=== PATIENT | female | born 1950 | race Caucasian/White ===

== ENCOUNTER → 2016-12-08 | Outpatient (CLI) | payer MEDICARE, BC | LOC: RAD 10:33 | PROVIDERS: ATTEND Internal Medicine Gastroenterology | DX: K74.69 Other cirrhosis of liver (principal); K76.0 Fatty (change of) liver, not elsewhere classified | CPT/HCPCS: 76700 ==

== ENCOUNTER 2017-02-07 14:09 | Inpatient (IN) | payer MEDICARE, BC ==
[2017-02-07] MEDS ORDERED: NORMAL SALINE 1000 ML 1,000 ML IV ONE (14:24)
[2017-02-07] MEDS ORDERED: PANTOPRAZOLE SODIUM 40 MG VIAL IV PRN (14:25)
[2017-02-07] MEDS ORDERED: NORMAL SALINE 500 ML with OCTREOTIDE ACETATE 500 MCG IV PRN ×2 (14:25)
[2017-02-07] MEDS ORDERED: OCTREOTIDE ACETATE INJ/PF 100 MCG/1 ML SDV IV ONE (14:25)
[2017-02-07] MEDS ORDERED: PANTOPRAZOLE SODIUM 40 MG VIAL IV ONE (14:25)
--- NOTE | 2017-02-07 14:34 | ER Document Report ---
ED GI Bleed / Rectal Pain - General Mode of Arrival: Medic Information source: Patient, Emergency Med Personnel TRAVEL OUTSIDE OF THE [place] IN LAST 30 DAYS: No - HPI Patient complains to provider of: Dark red bld from rectum Associated symptoms: Other - See above <KAREN JONES - Last Filed: 02/07/17 14:47> <CHEN GROSSMAN - Last Filed: 02/07/17 19:57> - General Chief Complaint: Rectal Bleeding Stated Complaint: rectal bleeding Time Seen by Provider: 02/07/17 14:09 Notes: Patient is a 66 year old female, with a past medical history including diabetes and hypertension, who presents to the emergency department via EMS complaining of rectal bleeding this morning. Patient states she woke up around 0330 and noticed dark red tar-like stool which is unusual for her. Patient denies bright red blood per rectum. Patient states that she started vomiting about 2 cups of dark red clotted blood after EMS arrived just prior to arrival. Patient states that she was also feeling diaphoretic and feverish at around 0330. Patient reports that she had this happen before a little over a year ago due to rupturing her esophageal varices and the bleeding stopped without intervention, she was treated by Dr. Aviles. Patient is not on any blood thinners, her last alcoholic drink was 20 years ago and she was never a heavy drinker before that. Patient states that she did have some abdominal pain en route but that subsided after she vomited. PCP: Dr. Bonilla GI: Dr. Aviles (KAREN JONES) - Related Data Allergies/Adverse Reactions: chocolate flavor Allergy (Verified 01/13/16 19:40) latex Allergy (Verified 01/13/16 19:40) moxifloxacin HCl [From Avelox] Allergy (Verified 01/13/16 19:40) Sulfa (Sulfonamide Antibiotics) Allergy (Verified 01/13/16 19:40) Home Medications: Current Home Medications Ferrous Sulfate [Feosol 325 mg Tablet] 325 mg PO BID 02/07/17 [History] Glimepiride [Amaryl] 2 mg PO QAM 02/07/17 [History] Losartan Potassium [Cozaar 50 mg Tablet] 50 mg PO DAILY 02/07/17 [History] Metformin HCl [Metformin HCl ER] 2,000 mg PO DAILY 02/07/17 [History] Nadolol [Corgard] 20 mg PO DAILY 02/07/17 [History] Simvastatin [Zocor 10 mg Tablet] 10 mg PO QHS 02/07/17 [History] Past Medical History - General Information source: Patient, Emergency Med Personnel - Social History Smoking Status: Former Smoker Frequency of alcohol use: Rare - last drink 20 years ago Drug Abuse: Marijuana - 20 years ago Family History: Reviewed & Not Pertinent - Past Medical History Cardiac Medical History: Reports: Hx Hypertension Endocrine Medical History: Reports: Hx Diabetes Mellitus Type 2 <KAREN JONES - Last Filed: 02/07/17 14:47> Review of Systems - Review of Systems Constitutional: See HPI, Diaphoresis, Fever EENT: No symptoms reported Cardiovascular: No symptoms reported Respiratory: No symptoms reported Gastrointestinal: See HPI, Abdominal pain, Vomiting, Blood in vomit, Black stools - dark blood. denies: Other - bright red blood per rectum Genitourinary: No symptoms reported Female Genitourinary: No symptoms reported Musculoskeletal: No symptoms reported Skin: No symptoms reported Hematologic/Lymphatic: No symptoms reported Neurological/Psychological: No symptoms reported -: Yes All other systems reviewed and negative <KAREN JONES - Last Filed: 02/07/17 14:47> Physical Exam <KAREN JONES - Last Filed: 02/07/17 14:47> <CHEN GROSSMAN - Last Filed: 02/07/17 19:57> - Vital signs Vitals: Temp Resp BP Pulse Ox 98.1 F 13 129/61 H 94 02/07/17 14:15 02/07/17 14:15 02/07/17 14:15 02/07/17 14:15 - Notes Notes: GENERAL: Alert, interacts well. No acute distress. HEAD: Normocephalic, atraumatic. EYES: Pupils equal, round, and reactive to light. Extraocular movements intact. ENT: Oral mucosa moist, tongue midline. NECK: Full range of motion. Supple. Trachea midline. LUNGS: Clear to auscultation bilaterally, no wheezes, rales, or rhonchi. No respiratory distress. HEART: 2 out of 6 systolic murmur at right upper sternal border. Regular rate and rhythm. No gallops, or rubs. ABDOMEN: Soft, non-tender. Non-distended. Bowel sounds present in all 4 quadrants. EXTREMITIES: Moves all 4 extremities spontaneously. No edema, radial and dorsalis pedis pulses 2/4 bilaterally. No cyanosis. RECTAL: Black tarry stool. No bright red blood. NEUROLOGICAL: Alert and oriented x3. Normal speech. PSYCH: Normal affect, normal mood. SKIN: Mildly diaphoretic. No pallor. (KAREN JONES) Course - Laboratory Result Diagrams: 02/07/17 14:18 02/07/17 14:18 - Consults Dr. Aviles Time consulted: 14:25 Dr. Almonte Time consulted: 14:30 <KAREN JONES - Last Filed: 02/07/17 14:47> - Laboratory Result Diagrams: 02/07/17 19:34 02/07/17 14:18 <CHEN GROSSMAN - Last Filed: 02/07/17 19:57> - Re-evaluation Re-evalutation: 02/07/17 19:57 CBC shows anemia with hemoglobin 10.3, platelets low at 132, coags normal, CMP shows elevated BUN of 52 consistent with GI bleed, low CO2 at 21, cardiac enzymes negative, occult blood is positive, patient is typed and screened, when she became hypotensive after talking to the hospitalist patient was then crossmatched for 2 units. Shortly after the patient's arrival I did speak with Dr. Aviles about the fact that GI bleed, he ordered octreotide and Protonix, agrees with admitting the patient to the hospitalist service and agrees to scope the patient later this evening. I discussed the patient with Dr. Almonte who accepted the patient to her service and will manage the patient further in the intensive care unit. (CHEN GROSSMAN) - Vital Signs Vital signs: Temp Pulse Resp BP Pulse Ox 98.3 F 97 22 H 158/66 H 98 02/07/17 18:34 02/07/17 18:34 02/07/17 18:34 02/07/17 18:34 02/07/17 18:34 - Laboratory Laboratory results interpreted by me: 02/07/17 02/07/17 02/07/17 14:18 14:18 14:18 RBC 3.34 L Hgb 10.3 L Hct 30.9 L RDW 14.2 H Plt Count 132 L Chloride 110 H Carbon Dioxide 21 L BUN 52 H Glucose 177 H POC Glucose ALT 58 H Total Protein 5.8 L Albumin 3.1 L Crossmatch See Detail 02/07/17 14:30 RBC Hgb Hct RDW Plt Count Chloride Carbon Dioxide BUN Glucose POC Glucose 160 H ALT Total Protein Albumin Crossmatch - Consults Dr. Aviles Reason for consultation: 02/07/17 14:25 Accepts patient, will scope later, orders Protonix and Sandostatin (KAREN JONES) Dr. Almonte Reason for consultation: 02/07/17 14:30 Will admit patient to ICU (KAREN JONES) Discharge <KAREN JONES - Last Filed: 02/07/17 14:47> - Discharge Admitting Provider: [facility] Admitted: ICU <CHEN GROSSMAN - Last Filed: 02/07/17 19:57> - Discharge Clinical Impression: Acute upper GI bleed Condition: Fair Disposition: ADMITTED INPATIENT Scribe Attestation: 02/07/17 19:57 I personally performed the services described in the documentation, reviewed and edited the documentation which was dictated to the scribe in my presence, and it accurately records my words and actions. (CHEN GROSSMAN) Scribe Documentation - Scribe Written by Olaf:: olaf Stevens, 02/07/17, [id number] acting as scribe for :: Radha <KAREN JONES - Last Filed: 02/07/17 14:47>
[2017-02-07 14:41] LABS: ABSOLUTE LYMPHOCYTES (AUTO) 1.7 10^3/uL (0.5-4.7); ABSOLUTE MONOCYTES (AUTO) 0.5 10^3/uL (0.1-1.4); ABSOLUTE NEUT (AUTO) 7.9 10^3/uL (1.7-8.2); BASOPHILS % (AUTO) 0.3 % (0-2); EOSINOPHILS % (AUTO) 0.3 % (0-6); HEMATOCRIT 30.9 % (36.0-47.0); HEMOGLOBIN 10.3 g/dL (12.0-15.5); LYMPHOCYTES % (AUTO) 16.6 % (13-45); MEAN CORPUSCULAR HEMOGLOBIN 30.7 pg (27.0-33.4); MEAN CORPUSCULAR HGB CONC 33.2 g/dL (32.0-36.0); MEAN CORPUSCULAR VOLUME 93 fl (80-97); MONOCYTES % (AUTO) 4.9 % (3-13); RED BLOOD COUNT 3.34 10^6/uL (3.72-5.28); RED CELL DISTRIBUTION WIDTH 14.2 % (11.5-14.0); SEGMENTED NEUTROPHILS % (AUTO) 77.9 % (42-78); WHITE BLOOD COUNT 10.2 10^3/uL (4.0-10.5)
[2017-02-07 14:56] LABS: ALANINE AMINOTRANSFERASE 58 U/L (9-52); ALBUMIN 3.1 g/dL (3.5-5.0); ALKALINE PHOSPHATASE 74 U/L (38-126); ANION GAP 10 (5-19); ASPARTATE AMINO TRANSFERASE 33 U/L (14-36); BILIRUBIN,DIRECT 0.2 mg/dL (0.0-0.4); BILIRUBIN,TOTAL 1.3 mg/dL (0.2-1.3); BLOOD UREA NITROGEN 52 mg/dL (7-20); CALCIUM 8.5 mg/dL (8.4-10.2); CARBON DIOXIDE 21 mmol/L (22-30); CHLORIDE 110 mmol/L (98-107); CREATININE RESULT 0.67 mg/dL (0.52-1.25); GLUCOSE 177 mg/dL (75-110); POTASSIUM 4.9 mmol/L (3.6-5.0); SODIUM 141.3 mmol/L (137-145); TOTAL PROTEIN 5.8 g/dL (6.3-8.2)
[2017-02-07 15:03] LABS: PROTHROMBIN TIME 14.2 SEC (11.4-15.4)
[2017-02-07] MEDS ORDERED: PROMETHAZINE HCL 25 MG SUPP.RECT PR PRN (15:19)
[2017-02-07] MEDS ORDERED: ONDANSETRON HCL INJ/PF 4 MG/2 ML SDV IV PRN (15:19)
[2017-02-07] MEDS ORDERED: OCTREOTIDE ACETATE INJ/PF 100 MCG/1 ML SDV ONE (15:23)
[2017-02-07] MEDS ORDERED: NORMAL SALINE 250 ML IV PRN ×2 (15:30)
[2017-02-07] MEDS ORDERED: GLUCAGON,HUMAN RECOMB 1 MG INJ IM PRN (15:31)
[2017-02-07] MEDS ORDERED: DEXTROSE 50%-WATER 25 GM/50 ML DISP.SYRIN IV PRN ×2 (15:31)
[2017-02-07] MEDS ORDERED: DEXTROSE 40% GEL 15 GM TUBE PO PRN ×2 (15:31)
[2017-02-07] MEDS: NORMAL SALINE 1000 ML 1,000 ML IV PRN ×2 (16:44→23:10)
[2017-02-07] MEDS ORDERED: NALOXONE HCL INJ/PF 0.4 MG/1 ML SDV ONE (17:14)
[2017-02-07] MEDS ORDERED: FENTANYL CITRATE INJ/PF 100 MCG/2 ML AMPUL ONE (17:15)
[2017-02-07] MEDS ORDERED: EPINEPHRINE INJ 1 MG/10 ML DISP.SYRIN ONE (17:15)
[2017-02-07] MEDS ORDERED: GLUCAGON,HUMAN RECOMB 1 MG INJ ONE (17:15)
[2017-02-07] MEDS ORDERED: FLUMAZENIL INJ 0.5 MG/5 ML VIAL IV ONE (17:15)
--- NOTE | 2017-02-07 17:23 | PDOC H&P ---
History of Present Illness Admission Date/PCP: 02/07/17 15:19 ROSLYN URIARTE PA-C History of Present Illness: SAURABH DURAND is a 66 year old female with a PMH of DM, HTN, HLD, anemia, cirrhosis, breast cancer with lumpectomy and radiation who presents to the emergency department with a one-day onset of melena and hematemesis. At 330 this morning feeling flushed and hot and diaphoretic and subsequently went to the bathroom and had a large dark stool. Patient subsequently had several other melanotic stools prompting her to activate EMS. Patient reports that she had several cups of emesis in the ambulance. Denies any changes in her medication or with excessive use of Motrin, Aleve, Goody's powders or aspirin. She reports she takes Aleve perhaps twice a week. Patient does report a questionable history in the early of hepatitis. Patient is referred to the hospital service for upper GI bleed. Past Medical History Cardiac Medical History: Reports: Hypertension Neurological Medical History: Denies: Seizures Endocrine Medical History: Reports: Diabetes Mellitus Type 2 Malignancy Medical History: Reports: Breast Cancer GI Medical History: Reports: Cirrhosis Infectious Medical History: Reports: Other - Questionable hepatitis Past Surgical History Past Surgical History: Reports: Other - lumpectomy Denies: Hysterectomy Social History Smoking Status: Former Smoker Frequency of Alcohol Use: None Hx Recreational Drug Use: No Drugs: None Hx Prescription Drug Abuse: No - Advance Directive Resuscitation Status: Full Code Surrogate healthcare decision maker:: ehsan, Family History Family History: CAD, DM Parental Family History Reviewed: Yes Children Family History Reviewed: Yes Sibling(s) Family History Reviewed.: Yes Medication/Allergy Home Medications: Ferrous Sulfate [Feosol 325 mg Tablet] 325 mg PO BID 02/07/17 Glimepiride [Amaryl] 2 mg PO QAM 02/07/17 Losartan Potassium [Cozaar 50 mg Tablet] 50 mg PO DAILY 02/07/17 Metformin HCl [Metformin HCl ER] 2,000 mg PO DAILY 02/07/17 Nadolol [Corgard] 20 mg PO DAILY 02/07/17 Simvastatin [Zocor 10 mg Tablet] 10 mg PO QHS 02/07/17 Allergies/Adverse Reactions: chocolate flavor Allergy (Verified 01/13/16 19:40) latex Allergy (Verified 01/13/16 19:40) moxifloxacin HCl [From Avelox] Allergy (Verified 01/13/16 19:40) Sulfa (Sulfonamide Antibiotics) Allergy (Verified 01/13/16 19:40) Review of Systems Constitutional: ABSENT: chills, fever(s), headache(s), weight gain, weight loss Eyes: ABSENT: visual disturbances Ears: ABSENT: hearing changes Cardiovascular: ABSENT: chest pain, dyspnea on exertion, edema, orthropnea, palpitations Respiratory: ABSENT: cough, hemoptysis Gastrointestinal: PRESENT: bloating, coffee ground emesis, hematemesis, melena, nausea, vomiting. ABSENT: abdominal pain, constipation, diarrhea, hematochezia Genitourinary: ABSENT: dysuria, hematuria Musculoskeletal: ABSENT: joint swelling Integumentary: ABSENT: rash, wounds Neurological: ABSENT: abnormal gait, abnormal speech, confusion, dizziness, focal weakness, syncope Psychiatric: ABSENT: anxiety, depression, homidical ideation, suicidal ideation Endocrine: ABSENT: cold intolerance, heat intolerance, polydipsia, polyuria Hematologic/Lymphatic: ABSENT: easy bleeding, easy bruising Physical Exam Vital Signs: Temp Pulse Resp BP Pulse Ox 97.5 F 90 22 H 129/67 H 96 02/07/17 16:35 02/07/17 16:35 02/07/17 16:35 02/07/17 16:35 02/07/17 16:35 Intake & Output 02/06/17 02/07/17 02/08/17 06:59 06:59 06:59 Intake Total 0 Balance 0 Weight 99.79 kg General appearance: PRESENT: mild distress, obese, well-developed, well- nourished, other - pale-appearing Head exam: PRESENT: atraumatic, normocephalic Eye exam: PRESENT: conjunctiva pink, EOMI, PERRLA. ABSENT: scleral icterus Ear exam: PRESENT: normal external ear exam Mouth exam: PRESENT: dry mucosa, tongue midline Neck exam: PRESENT: lymphadenopathy - Right anterior cervical. ABSENT: JVD, thyromegaly, tracheal deviation Respiratory exam: PRESENT: clear to auscultation [place], symmetrical, unlabored. ABSENT: crackles, rales, rhonchi, tachypnea, wheezes Cardiovascular exam: PRESENT: RRR, +S1, +S2, tachycardia. ABSENT: clicks, diastolic murmur, gallop, rubs, systolic murmur Pulses: PRESENT: normal dorsalis pedis pul Vascular exam: PRESENT: normal capillary refill GI/Abdominal exam: PRESENT: normal bowel sounds, soft. ABSENT: distended, guarding, mass, organolmegaly, rebound, tenderness Rectal exam: PRESENT: deferred, black stool, heme (+) stool Extremities exam: PRESENT: full ROM. ABSENT: calf tenderness, clubbing, pedal edema Neurological exam: PRESENT: alert, awake, oriented to person, oriented to place , oriented to time, oriented to situation, CN II-XII grossly intact. ABSENT: motor sensory deficit Psychiatric exam: PRESENT: appropriate affect, normal mood. ABSENT: homicidal ideation, suicidal ideation Skin exam: PRESENT: dry, intact, warm. ABSENT: cyanosis, rash Results Laboratory Results: 02/07/17 02/07/17 02/07/17 14:18 14:18 14:18 WBC 10.2 Hgb 10.3 L Hct 30.9 L Plt Count 132 L INR 1.03 Carbon Dioxide 21 L BUN 52 H Glucose 177 H POC Glucose AST 33 ALT 58 H Alkaline Phosphatase 74 Troponin I Total Protein 5.8 L Albumin 3.1 L Stool Occult Blood 02/07/17 02/07/17 02/07/17 14:18 14:20 14:30 WBC Hgb Hct Plt Count INR Carbon Dioxide BUN Glucose POC Glucose 160 H AST ALT Alkaline Phosphatase Troponin I < 0.012 Total Protein Albumin Stool Occult Blood POSITIVE Assessment & Plan - Diagnosis (1) Acute upper GI bleed Is this a current diagnosis for this admission?: YesPlan: Has been started on octreotide and Protonix drips. Patient has been typed and screened for an 2 units are currently on hold. We will continue to monitor patient's CBC every 4 hours. GI has been consulted emergently and patient has been seen previously by Dr. Aviles and plans for upper endoscopy today. She does have a history of prior variceal bleeding. Will go to the ICU. (2) Hypotension Qualifiers: Hypotension type: unspecified hypotension type Qualified Code(s): I95.9 - Hypotension, unspecified Is this a current diagnosis for this admission?: YesPlan: We will give patient additional liter of normal saline and run fluids aggressively after this. Consider vasopressin. (3) DM type 2 (diabetes mellitus, type 2) Qualifiers: Diabetes mellitus complication status: with unspecified complications Diabetes mellitus monorail operator insulin use: without monorail operator use Qualified Code(s): E11.8 - Type 2 diabetes mellitus with unspecified complications Is this a current diagnosis for this admission?: YesPlan: Patient is currently n.p.o. and will check her Accu-Chek every 6. (4) HTN (hypertension) Qualifiers: Hypertension type: essential hypertension Qualified Code(s): I10 - Essential (primary) hypertension Is this a current diagnosis for this admission?: YesPlan: At this time due to hypotension (5) HLD (hyperlipidemia) Qualifiers: Hyperlipidemia type: unspecified Qualified Code(s): E78.5 - Hyperlipidemia, unspecified Is this a current diagnosis for this admission?: Yes (6) Non-alcoholic cirrhosis Is this a current diagnosis for this admission?: Yes (7) History of breast cancer Is this a current diagnosis for this admission?: Yes (8) Obesity (BMI 30.0-34.9) Is this a current diagnosis for this admission?: Yes - Time Time Spent: 50 to 70 Minutes Critical Time spent with patient: 35 or more minutes Medications reviewed and adjusted accordingly: Yes - Inpatient Certification Based on my medical assessment, after consideration of the patient's comorbidities, presenting symptoms, or acuity I expect that the services needed warrant INPATIENT care.: Yes I certify that my determination is in accordance with my understanding of Medicare's requirements for reasonable and necessary INPATIENT services [42 CFR 412.3e].: Yes Medical Necessity: Need For IV Fluids, Need for Surgery Post Hospital Care: D/C Emergency Nurse Documentation
[2017-02-07 19:44] LABS: HEMATOCRIT 34.3 % (36.0-47.0); HEMOGLOBIN 11.3 g/dL (12.0-15.5); HGB HCT DIFFERENCE -0.4; MEAN CORPUSCULAR HEMOGLOBIN 29.8 pg (27.0-33.4); MEAN CORPUSCULAR VOLUME 90 fl (80-97); RED CELL DISTRIBUTION WIDTH 15.2 % (11.5-14.0); WHITE BLOOD COUNT 11.3 10^3/uL (4.0-10.5)
[2017-02-07] MEDS: MIDAZOLAM 2 MG/2 ML INJ ONE ×2 (20:18→20:30)
[2017-02-07] MEDS: HYDROMORPHONE HCL INJ/PF 2 MG/ML AMPULE IV PRN (21:20)
--- NOTE | 2017-02-07 21:54 | OPERATIVE REPORT E ---
Operative Report NAME: SAURABH DURAND : 1950 AGE: 66Y DATE OF SURGERY: 02/07/2017 ROOM: 605 PREOPERATIVE DIAGNOSIS: Acute GI bleed. POSTOPERATIVE DIAGNOSIS: Esophageal varices. OPERATION: EGD with varices rubber banding. SURGEON: KARTHIKEYAN ALARCON M.D. MEDICATIONS: Versed 3 mg, fentanyl 100 mcg IV push. TISSUE REMOVED OR ALTERED: None. PROCEDURE: After informed consent obtained from patient, conscious sedation was achieved. The upper endoscope was then inserted into the esophagus and down into the stomach. There was some altered blood noted in the stomach but no active bleeding was seen. The residual blood was lavaged and suctioned out of the stomach. Detailed examination of the duodenum and the stomach did not shows any pathology. There were no gastric varices. The patient had a moderate size, long esophageal varix involving the distal one part of the esophagus. There were two smaller short varices noted close to the GE junction. I did not see any evidence for routine bleeding on the varix but with the normal stomach and duodenum and altered blood in the stomach, the varices are the likely etiology. The endoscope was then pulled out of the patient and ARNULFO rubber band kit was then loaded. Three rubber bands were applied on the largest varix and one band on one of the small varix. No active bleeding was noted at the end of the procedure. She tolerated the procedure well. PLAN: She will undergo *------* variceal rubber banding. Continue Sandostatin and nadolol. She will be restarted as soon as possible. DICTATING PHYSICIAN: KARTHIEKYAN ALARCON M.D. [id number] Y#: [id number] ID: [id number] JOB#: [id number] ACCT: [id number] cc:KARTHIKEYAN ALARCON M.D. >
[2017-02-07] MEDS: SUCRALFATE SUSP 1 GM/10 ML UDCUP PO SCH (23:09)
[2017-02-07] MEDS: NORMAL SALINE 500 ML with OCTREOTIDE ACETATE 500 MCG IV PRN ×2 (23:10)
[2017-02-07] MEDS: NORMAL SALINE 100 ML with PANTOPRAZOLE SODIUM 80 MG IV PRN ×2 (23:10)
--- NOTE | 2017-02-07 23:18 | CONSULTATION REPORT E ---
Consultation Report NAME: SAURABH DURAND : 1950 AGE: 66Y DATE: 02/07/2017 ROOM: 605 A TO: KARTHIKEYAN ALARCON M.D. FROM: ROGER ANGELA M.D. Requesting Physician HISTORY OF THE PRESENT ILLNESS: This is a 65-year-old patient admitted through the emergency room with GI bleed. She woke up this morning feeling sick and subsequently had black stools. She has had about 2 melanotic stools so far. She also vomited 3 times in total, each of which had fresh blood in it. She denies abdominal pain. On admission hemoglobin was 10.3 and she has since received 4 units of blood and most recent hemoglobin was 11.3. Her platelet count on admission was 132. INR was normal at 1.03. The patient had a similar episode of GI bleed about a year ago. At that time she only had black stools and had some right lower quadrant pain. I performed an EGD that showed a single moderate sized distal esophageal varices, diffuse gastritis, and antral erosions. A colonoscopy at that time was unremarkable except for polyps in the descending and ascending colon and sigmoid diverticulosis. She had been doing well since that episode of GI bleed. She had a CT scan of the abdomen in 12/2015 that showed a normal liver and no significant findings except for thickening of some parts of the jejunum. She had an ultrasound of the abdomen in November of this year that showed fatty liver. The liver did have a nodular surface with coarse echotexture consistent with cirrhosis. PAST MEDICAL HISTORY: Cirrhosis, esophageal varices, diverticulosis, colon polyps, breast cancer, diabetes, hypertension, hypercholesterolemia. PAST SURGICAL HISTORY: EGD and colonoscopy in 12/2015. ALLERGIES: LATEX, SULFA, CHOCOLATE, AND MOXIFLOXACIN. MEDICATIONS AT HOME: 1. Nadolol 20 mg daily. 2. Ferrous sulfate. 3. Glimepiride. 4. Cozaar. 5. Zocor. 6. Metformin. REVIEW OF SYSTEMS: Other than the above is noncontributory. PHYSICAL EXAMINATION: GENERAL: Shows an obese lady in no distress. VITAL SIGNS: She has a heart rate of 97, blood pressure 158/66. HEENT: There is pallor but no jaundice. Oropharynx is normal. NECK: No bruit, no JVD. CHEST: No deformity. LUNGS: Clear. HEART: S1 and S2 normal without murmurs. ABDOMEN: Soft and nontender. Liver and spleen not palpable. Bowel sounds active. NEUROLOGIC: Grossly nonfocal. OTHER LABORATORY DATA: Showed a normal LFT, except for an ALT of 58, albumin of 3.1, BUN of 52 with creatinine of 0.6. Platelet of 132. ASSESSMENT AND PLAN: Acute gastrointestinal bleed. The patient has had episodes of melena and bright red blood in her vomiting. I suspect she may have bled from her varices but peptic ulcers are also possible. She takes Aleve about 4 times a week. She will undergo an urgent EGD in ICU. She was started on IV Protonix and octreotide in the emergency room. We will shall follow her H and H every 6-8 hours for now. DICTATING PHYSICIAN: KARTHIKEYAN ALARCON M.D. [id number] Y#: [id number] 2019 ID: [id number] JOB#: [id number] ACCT: [id number] cc:KARTHIKEYAN ALARCON M.D. >
[2017-02-07 23:40] LABS: HEMATOCRIT 34.9 % (36.0-47.0); HEMOGLOBIN 11.6 g/dL (12.0-15.5); HGB HCT DIFFERENCE -0.1; MEAN CORPUSCULAR HGB CONC 33.2 g/dL (32.0-36.0); MEAN CORPUSCULAR VOLUME 91 fl (80-97); RED BLOOD COUNT 3.86 10^6/uL (3.72-5.28); RED CELL DISTRIBUTION WIDTH 15.3 % (11.5-14.0); WHITE BLOOD COUNT 14.9 10^3/uL (4.0-10.5)
[2017-02-08 04:03] LABS: HEMOGLOBIN 10.6 g/dL (12.0-15.5); HGB HCT DIFFERENCE -0.2; MEAN CORPUSCULAR HEMOGLOBIN 29.8 pg (27.0-33.4); MEAN CORPUSCULAR HGB CONC 33.2 g/dL (32.0-36.0); MEAN CORPUSCULAR VOLUME 90 fl (80-97); RED BLOOD COUNT 3.56 10^6/uL (3.72-5.28); RED CELL DISTRIBUTION WIDTH 15.6 % (11.5-14.0); WHITE BLOOD COUNT 12.2 10^3/uL (4.0-10.5)
[2017-02-08] MEDS: NORMAL SALINE 1000 ML 1,000 ML IV PRN (06:04)
[2017-02-08] MEDS: SUCRALFATE SUSP 1 GM/10 ML UDCUP PO SCH ×3 (06:04→17:35)
[2017-02-08] MEDS: HYDROMORPHONE HCL INJ/PF 2 MG/ML AMPULE IV PRN (06:35)
[2017-02-08 07:47] LABS: ABSOLUTE EOSINOPHILS # (AUTO) 0.2 10^3/uL (0.0-0.6); ABSOLUTE LYMPHOCYTES (AUTO) 2.1 10^3/uL (0.5-4.7); ABSOLUTE NEUT (AUTO) 7.9 10^3/uL (1.7-8.2); BASOPHILS % (AUTO) 0.3 % (0-2); EOSINOPHILS % (AUTO) 1.4 % (0-6); HEMATOCRIT 31.8 % (36.0-47.0); HEMOGLOBIN 10.5 g/dL (12.0-15.5); HGB HCT DIFFERENCE -0.3; LYMPHOCYTES % (AUTO) 18.8 % (13-45); MEAN CORPUSCULAR HEMOGLOBIN 29.8 pg (27.0-33.4); MEAN CORPUSCULAR HGB CONC 32.8 g/dL (32.0-36.0); MEAN CORPUSCULAR VOLUME 91 fl (80-97); MONOCYTES % (AUTO) 9.1 % (3-13); RED BLOOD COUNT 3.51 10^6/uL (3.72-5.28); RED CELL DISTRIBUTION WIDTH 15.8 % (11.5-14.0); SEGMENTED NEUTROPHILS % (AUTO) 70.4 % (42-78); WHITE BLOOD COUNT 11.2 10^3/uL (4.0-10.5)
[2017-02-08 08:04] LABS: ALANINE AMINOTRANSFERASE 58 U/L (9-52); ALBUMIN 2.7 g/dL (3.5-5.0); ALKALINE PHOSPHATASE 73 U/L (38-126); ANION GAP 7 (5-19); ASPARTATE AMINO TRANSFERASE 32 U/L (14-36); BILIRUBIN,DIRECT 0.2 mg/dL (0.0-0.4); BILIRUBIN,TOTAL 0.7 mg/dL (0.2-1.3); BLOOD UREA NITROGEN 36 mg/dL (7-20); CALCIUM 7.5 mg/dL (8.4-10.2); CARBON DIOXIDE 22 mmol/L (22-30); CHLORIDE 116 mmol/L (98-107); CREATININE RESULT 0.63 mg/dL (0.52-1.25); GLUCOSE 141 mg/dL (75-110); MAGNESIUM 1.6 mg/dL (1.6-2.3); POTASSIUM 4.1 mmol/L (3.6-5.0); TOTAL PROTEIN 5.3 g/dL (6.3-8.2)
[2017-02-08] MEDS: NORMAL SALINE 500 ML with OCTREOTIDE ACETATE 500 MCG IV PRN ×4 (09:03→20:02)
[2017-02-08] MEDS ORDERED: HYDROMORPHONE HCL INJ/PF 2 MG/ML AMPULE IV PRN (09:21)
[2017-02-08] MEDS ORDERED: FUROSEMIDE INJ/PF 20 MG/2 ML SDV IV ONE (09:45)
[2017-02-08] MEDS: NORMAL SALINE 100 ML with PANTOPRAZOLE SODIUM 80 MG IV PRN ×2 (10:04)
[2017-02-08] MEDS: MAGNESIUM SULFATE/D5W 100 ML IV SCH ×2 (10:04→11:21)
[2017-02-08] MEDS: LIDOCAINE 2% VISCOUS SOLN 20 ML UDCUP PO PRN ×3 (10:56→20:14)
[2017-02-08] MEDS: INSULIN LISPRO 100 UNIT/ML 3 ML VIAL SUBCUT PRN (11:45)
[2017-02-08 13:08] LABS: HEMATOCRIT 32.3 % (36.0-47.0); HEMOGLOBIN 10.7 g/dL (12.0-15.5); HGB HCT DIFFERENCE -0.2; MEAN CORPUSCULAR HEMOGLOBIN 30.3 pg (27.0-33.4); MEAN CORPUSCULAR HGB CONC 33.1 g/dL (32.0-36.0); MEAN CORPUSCULAR VOLUME 91 fl (80-97); RED BLOOD COUNT 3.54 10^6/uL (3.72-5.28); RED CELL DISTRIBUTION WIDTH 15.9 % (11.5-14.0); WHITE BLOOD COUNT 10.2 10^3/uL (4.0-10.5)
--- NOTE | 2017-02-08 18:11 | PDOC PROGRESS REPORT ---
Subjective Progress Note for:: 02/08/17 Subjective:: Underwent variceal banding last night. She was having some pain afterwards and was given Dilaudid and is still sleepy this morning. Patient denies chest pain, fever, chills, shortness of breath, nausea, vomiting , hematemesis, hematochezia, melena. Physical Exam Vital Signs: Temp Pulse Resp BP Pulse Ox 99.5 F 88 19 130/71 H 97 02/08/17 18:00 02/08/17 16:00 02/08/17 18:00 02/08/17 17:02 02/08/17 18:00 Intake & Output 02/07/17 02/08/17 02/09/17 06:59 06:59 06:59 Intake Total 3319 1674 Output Total 1625 1325 Balance 1694 349 Weight 102.8 kg Exam: GENERAL: No acute distress HEENT: Conjunctiva clear, nonicteric, moist mucous membranes, no JVD, midline trachea RESPIRATORY: CTAB CARDIAC: RRR, no rub or gallop ABDOMEN: Soft, nondistended, nontender, positive bowel sounds, no rebound, no guarding EXTREMETIES: No edema, cyanosis, clubbing NEUROLOGIC: Alert, oriented to person, CN's grossly intact SKIN: No rash, wounds PSYCH: Normal mood, normal affect Results Laboratory Results: 02/08/17 13:01 02/08/17 07:37 02/07/17 02/07/17 02/08/17 19:34 23:34 03:34 WBC 11.3 H 14.9 H 12.2 H RBC 3.80 3.86 3.56 L Hgb 11.3 L 11.6 L 10.6 L Hct 34.3 L 34.9 L 32.0 L MCV 90 91 90 MCH 29.8 30.0 29.8 MCHC 33.0 33.2 33.2 RDW 15.2 H 15.3 H 15.6 H Plt Count 112 L 106 L 99 L Seg Neutrophils % Lymphocytes % Monocytes % Eosinophils % Basophils % Absolute Neutrophils Absolute Lymphocytes Absolute Monocytes Absolute Eosinophils Absolute Basophils Sodium Potassium Chloride Carbon Dioxide Anion Gap BUN Creatinine Est GFR ( Amer) Est GFR (Non-Af Amer) Glucose Calcium Magnesium Total Bilirubin AST ALT Alkaline Phosphatase Total Protein Albumin 02/08/17 02/08/17 02/08/17 07:37 07:37 11:30 WBC 11.2 H Cancelled RBC 3.51 L Cancelled Hgb 10.5 L Cancelled Hct 31.8 L Cancelled MCV 91 Cancelled MCH 29.8 Cancelled MCHC 32.8 Cancelled RDW 15.8 H Cancelled Plt Count 112 L Cancelled Seg Neutrophils % 70.4 Lymphocytes % 18.8 Monocytes % 9.1 Eosinophils % 1.4 Basophils % 0.3 Absolute Neutrophils 7.9 Absolute Lymphocytes 2.1 Absolute Monocytes 1.0 Absolute Eosinophils 0.2 Absolute Basophils 0.0 Sodium 145.0 Potassium 4.1 Chloride 116 H Carbon Dioxide 22 Anion Gap 7 BUN 36 H Creatinine 0.63 Est GFR ( Amer) > 60 Est GFR (Non-Af Amer) > 60 Glucose 141 H Calcium 7.5 L Magnesium 1.6 Total Bilirubin 0.7 AST 32 ALT 58 H Alkaline Phosphatase 73 Total Protein 5.3 L Albumin 2.7 L 02/08/17 13:01 WBC 10.2 RBC 3.54 L Hgb 10.7 L Hct 32.3 L MCV 91 MCH 30.3 MCHC 33.1 RDW 15.9 H Plt Count 116 L Seg Neutrophils % Lymphocytes % Monocytes % Eosinophils % Basophils % Absolute Neutrophils Absolute Lymphocytes Absolute Monocytes Absolute Eosinophils Absolute Basophils Sodium Potassium Chloride Carbon Dioxide Anion Gap BUN Creatinine Est GFR ( Amer) Est GFR (Non-Af Amer) Glucose Calcium Magnesium Total Bilirubin AST ALT Alkaline Phosphatase Total Protein Albumin 02/07/17 02/08/17 21:18 03:34 Troponin I < 0.012 < 0.012 Assessment & Plan - Diagnosis (1) Acute upper GI bleed Is this a current diagnosis for this admission?: YesPlan: Continue octreotide and Protonix drips. Patient has been typed and screened for an 2 units are currently on hold. Start patient on clear liquid diet. Transition to oral PPI. Continue octreotide. EGD done 02/07/17 reveals variceal bleed which has been banded. (2) Hypotension Qualifiers: Hypotension type: unspecified hypotension type Qualified Code(s): I95.9 - Hypotension, unspecified Is this a current diagnosis for this admission?: Yes (3) DM type 2 (diabetes mellitus, type 2) Qualifiers: Diabetes mellitus complication status: with unspecified complications Diabetes mellitus laborer marine terminal insulin use: without laborer marine terminal use Qualified Code(s): E11.8 - Type 2 diabetes mellitus with unspecified complications; Z79.4 - director long term care (current) use of insulin Is this a current diagnosis for this admission?: YesPlan: Accu-Cheks and sliding scale until patient is taking normal oral input. (4) HTN (hypertension) Qualifiers: Hypertension type: essential hypertension Qualified Code(s): I10 - Essential (primary) hypertension Is this a current diagnosis for this admission?: Yes (5) HLD (hyperlipidemia) Qualifiers: Hyperlipidemia type: unspecified Qualified Code(s): E78.5 - Hyperlipidemia, unspecified Is this a current diagnosis for this admission?: Yes (6) Non-alcoholic cirrhosis Is this a current diagnosis for this admission?: Yes (7) History of breast cancer Is this a current diagnosis for this admission?: Yes (8) Obesity (BMI 30.0-34.9) Is this a current diagnosis for this admission?: Yes - Time Time Spent with patient: 25-34 minutes Medications reviewed and adjusted accordingly: Yes Anticipated discharge: Home Within: within 48 hours
--- NOTE | 2017-02-08 19:10 | PDOC PROGRESS REPORT ---
Subjective Progress Note for:: 02/08/17 Subjective:: Patient was seen yesterday with acute variceal bleeding. She had an EGD with placement of 4 rubber bands. She has been doing reasonably well since the endoscopy. She continues to have some retrosternal discomfort but this is better than earlier today. Hemoglobin remained stable. Physical Exam Vital Signs: Temp Pulse Resp BP Pulse Ox 99.5 F 88 19 130/71 H 97 02/08/17 18:00 02/08/17 16:00 02/08/17 18:00 02/08/17 17:02 02/08/17 18:00 Intake & Output 02/07/17 02/08/17 02/09/17 06:59 06:59 06:59 Intake Total 3319 1674 Output Total 1625 1700 Balance 1694 -26 Weight 102.8 kg Exam: General: Patient is alert and looks well. HEENT: There is pallor but no jaundice. PERRLA. Oropharynx normal Respiratory: No chest deformity. No respiratory distress. Chest wall palpitation was unremarkable. Breath sounds were normal Cardiovascular: Heart sounds 1 and 2 normal with no murmurs. Abdominal: Not distended. Soft and nontender. Liver and spleen not palpable. No ascites demonstrated. Bowel sounds active. Rectal examination was deferred. Extremities: No edema Neurological: Alert and oriented x4. Grossly nonfocal. Normal speech Skin: No significant rash Psychological: Normal affect Results Laboratory Results: 02/08/17 13:01 02/08/17 07:37 02/07/17 02/07/17 02/08/17 19:34 23:34 03:34 WBC 11.3 H 14.9 H 12.2 H RBC 3.80 3.86 3.56 L Hgb 11.3 L 11.6 L 10.6 L Hct 34.3 L 34.9 L 32.0 L MCV 90 91 90 MCH 29.8 30.0 29.8 MCHC 33.0 33.2 33.2 RDW 15.2 H 15.3 H 15.6 H Plt Count 112 L 106 L 99 L Seg Neutrophils % Lymphocytes % Monocytes % Eosinophils % Basophils % Absolute Neutrophils Absolute Lymphocytes Absolute Monocytes Absolute Eosinophils Absolute Basophils Sodium Potassium Chloride Carbon Dioxide Anion Gap BUN Creatinine Est GFR ( Amer) Est GFR (Non-Af Amer) Glucose Calcium Magnesium Total Bilirubin AST ALT Alkaline Phosphatase Total Protein Albumin 02/08/17 02/08/17 02/08/17 07:37 07:37 11:30 WBC 11.2 H Cancelled RBC 3.51 L Cancelled Hgb 10.5 L Cancelled Hct 31.8 L Cancelled MCV 91 Cancelled MCH 29.8 Cancelled MCHC 32.8 Cancelled RDW 15.8 H Cancelled Plt Count 112 L Cancelled Seg Neutrophils % 70.4 Lymphocytes % 18.8 Monocytes % 9.1 Eosinophils % 1.4 Basophils % 0.3 Absolute Neutrophils 7.9 Absolute Lymphocytes 2.1 Absolute Monocytes 1.0 Absolute Eosinophils 0.2 Absolute Basophils 0.0 Sodium 145.0 Potassium 4.1 Chloride 116 H Carbon Dioxide 22 Anion Gap 7 BUN 36 H Creatinine 0.63 Est GFR ( Amer) > 60 Est GFR (Non-Af Amer) > 60 Glucose 141 H Calcium 7.5 L Magnesium 1.6 Total Bilirubin 0.7 AST 32 ALT 58 H Alkaline Phosphatase 73 Total Protein 5.3 L Albumin 2.7 L 02/08/17 13:01 WBC 10.2 RBC 3.54 L Hgb 10.7 L Hct 32.3 L MCV 91 MCH 30.3 MCHC 33.1 RDW 15.9 H Plt Count 116 L Seg Neutrophils % Lymphocytes % Monocytes % Eosinophils % Basophils % Absolute Neutrophils Absolute Lymphocytes Absolute Monocytes Absolute Eosinophils Absolute Basophils Sodium Potassium Chloride Carbon Dioxide Anion Gap BUN Creatinine Est GFR ( Amer) Est GFR (Non-Af Amer) Glucose Calcium Magnesium Total Bilirubin AST ALT Alkaline Phosphatase Total Protein Albumin 02/07/17 02/08/17 21:18 03:34 Troponin I < 0.012 < 0.012 Assessment & Plan - Diagnosis (1) Esophageal varices with bleeding Is this a current diagnosis for this admission?: YesPlan: Her bleeding appeared to have stopped. I will start tapering her octreotide tomorrow morning and be done at the end of the day. She should be able to go home in 2 days if there is no recurrence of bleeding. Her nadolol was resumed at 40 mg daily. She will continue with Carafate and lidocaine as needed. The plan is to repeat EGD with banding in about 4 weeks. (2) Acute upper GI bleed Is this a current diagnosis for this admission?: Yes (3) Non-alcoholic cirrhosis Is this a current diagnosis for this admission?: Yes
[2017-02-09] MEDS: SUCRALFATE SUSP 1 GM/10 ML UDCUP PO SCH ×4 (00:07→18:42)
[2017-02-09] MEDS: LIDOCAINE 2% VISCOUS SOLN 20 ML UDCUP PO PRN ×4 (00:07→20:56)
[2017-02-09 04:15] LABS: ABSOLUTE EOSINOPHILS # (AUTO) 0.1 10^3/uL (0.0-0.6); ABSOLUTE LYMPHOCYTES (AUTO) 2.1 10^3/uL (0.5-4.7); ABSOLUTE MONOCYTES (AUTO) 0.7 10^3/uL (0.1-1.4); ABSOLUTE NEUT (AUTO) 5.6 10^3/uL (1.7-8.2); BASOPHILS % (AUTO) 0.4 % (0-2); EOSINOPHILS % (AUTO) 1.2 % (0-6); HEMOGLOBIN 10.6 g/dL (12.0-15.5); HGB HCT DIFFERENCE 0.8; LYMPHOCYTES % (AUTO) 24.2 % (13-45); MEAN CORPUSCULAR HEMOGLOBIN 30.3 pg (27.0-33.4); MEAN CORPUSCULAR HGB CONC 34.2 g/dL (32.0-36.0); MEAN CORPUSCULAR VOLUME 89 fl (80-97); MONOCYTES % (AUTO) 8.6 % (3-13); RED CELL DISTRIBUTION WIDTH 15.4 % (11.5-14.0); SEGMENTED NEUTROPHILS % (AUTO) 65.6 % (42-78); WHITE BLOOD COUNT 8.5 10^3/uL (4.0-10.5)
[2017-02-09 04:21] LABS: ALANINE AMINOTRANSFERASE 63 U/L (9-52); ALKALINE PHOSPHATASE 79 U/L (38-126); ANION GAP 9 (5-19); ASPARTATE AMINO TRANSFERASE 39 U/L (14-36); BILIRUBIN,DIRECT 0.3 mg/dL (0.0-0.4); BILIRUBIN,TOTAL 0.7 mg/dL (0.2-1.3); BLOOD UREA NITROGEN 17 mg/dL (7-20); CALCIUM 7.9 mg/dL (8.4-10.2); CARBON DIOXIDE 25 mmol/L (22-30); CHLORIDE 109 mmol/L (98-107); CREATININE RESULT 0.65 mg/dL (0.52-1.25); GLUCOSE 140 mg/dL (75-110); MAGNESIUM 1.8 mg/dL (1.6-2.3); POTASSIUM 3.9 mmol/L (3.6-5.0); SODIUM 142.8 mmol/L (137-145); TOTAL PROTEIN 5.7 g/dL (6.3-8.2)
[2017-02-09] MEDS: NORMAL SALINE 500 ML with OCTREOTIDE ACETATE 500 MCG IV PRN ×2 (05:11)
[2017-02-09] MEDS: NADOLOL 40 MG TABLET PO SCH (10:10)
[2017-02-09] MEDS: LANSOPRAZOLE 30 MG TAB.RAP.DR PO SCH ×2 (10:11→18:42)
[2017-02-09] MEDS: INSULIN LISPRO 100 UNIT/ML 3 ML VIAL SUBCUT PRN (12:34)
--- NOTE | 2017-02-09 19:01 | PDOC PROGRESS REPORT ---
Subjective Progress Note for:: 02/09/17 Subjective:: Underwent variceal banding on 02/07/17. Reports some ongoing discomfort with swallowing. She denies any further bowel movements or episodes of hematemesis. Patient denies chest pain, fever, chills, shortness of breath, nausea, vomiting , hematemesis, hematochezia, melena. Physical Exam Vital Signs: Temp Pulse Resp BP Pulse Ox 97.8 F 73 18 147/61 H 97 02/09/17 07:42 02/09/17 14:00 02/09/17 07:42 02/09/17 07:42 02/09/17 07:42 Intake & Output 02/08/17 02/09/17 02/10/17 06:59 06:59 06:59 Intake Total 3319 2231 Output Total 2430 7925 Balance 1694 -1194 Weight 102.8 kg 102 kg Exam: GENERAL: No acute distress HEENT: Conjunctiva clear, nonicteric, moist mucous membranes, no JVD, midline trachea RESPIRATORY: CTAB CARDIAC: RRR, no rub or gallop ABDOMEN: Soft, nondistended, nontender, positive bowel sounds, no rebound, no guarding EXTREMETIES: No edema, cyanosis, clubbing NEUROLOGIC: Alert, oriented to person, CN's grossly intact SKIN: No rash, wounds PSYCH: Normal mood, normal affect Results Laboratory Results: 02/09/17 03:53 02/09/17 03:53 02/09/17 02/09/17 03:53 03:53 WBC 8.5 RBC 3.50 L Hgb 10.6 L Hct 31.0 L MCV 89 MCH 30.3 MCHC 34.2 RDW 15.4 H Plt Count 98 L Seg Neutrophils % 65.6 Lymphocytes % 24.2 Monocytes % 8.6 Eosinophils % 1.2 Basophils % 0.4 Absolute Neutrophils 5.6 Absolute Lymphocytes 2.1 Absolute Monocytes 0.7 Absolute Eosinophils 0.1 Absolute Basophils 0.0 Sodium 142.8 Potassium 3.9 Chloride 109 H Carbon Dioxide 25 Anion Gap 9 BUN 17 Creatinine 0.65 Est GFR ( Amer) > 60 Est GFR (Non-Af Amer) > 60 Glucose 140 H Calcium 7.9 L Magnesium 1.8 Total Bilirubin 0.7 AST 39 H ALT 63 H Alkaline Phosphatase 79 Total Protein 5.7 L Albumin 3.0 L 02/07/17 02/08/17 21:18 03:34 Troponin I < 0.012 < 0.012 Assessment & Plan - Diagnosis (1) Acute upper GI bleed Is this a current diagnosis for this admission?: YesPlan: Continue octreotide taper. Patient has been typed and screened for an 2 units are currently on hold. EGD done 02/07/17 reveals variceal bleed which has been banded. On Prevacid (2) Hypotension Qualifiers: Hypotension type: unspecified hypotension type Qualified Code(s): I95.9 - Hypotension, unspecified Is this a current diagnosis for this admission?: YesPlan: We will give patient additional liter of normal saline and run fluids aggressively after this. Consider vasopressin. (3) DM type 2 (diabetes mellitus, type 2) Qualifiers: Diabetes mellitus complication status: with unspecified complications Diabetes mellitus shelter insulin use: without shelter use Qualified Code(s): E11.8 - Type 2 diabetes mellitus with unspecified complications; Z79.4 - terminal gauger (current) use of insulin Is this a current diagnosis for this admission?: YesPlan: Accu-Cheks and sliding scale until patient is taking normal oral input. (4) HTN (hypertension) Qualifiers: Hypertension type: essential hypertension Qualified Code(s): I10 - Essential (primary) hypertension Is this a current diagnosis for this admission?: YesPlan: At this time due to hypotension (5) HLD (hyperlipidemia) Qualifiers: Hyperlipidemia type: unspecified Qualified Code(s): E78.5 - Hyperlipidemia, unspecified Is this a current diagnosis for this admission?: Yes (6) Non-alcoholic cirrhosis Is this a current diagnosis for this admission?: YesPlan: Patient will need to follow-up with her GI physician and has been advised to lose weight. Patient has also been advised to watch her cholesterol and diabetes. (7) History of breast cancer Is this a current diagnosis for this admission?: Yes (8) Obesity (BMI 30.0-34.9) Is this a current diagnosis for this admission?: Yes
[2017-02-10] MEDS: SUCRALFATE SUSP 1 GM/10 ML UDCUP PO SCH ×3 (00:09→13:00)
[2017-02-10 05:40] LABS: ALANINE AMINOTRANSFERASE 59 U/L (9-52); ALBUMIN 2.8 g/dL (3.5-5.0); ALKALINE PHOSPHATASE 70 U/L (38-126); ANION GAP 6 (5-19); ASPARTATE AMINO TRANSFERASE 39 U/L (14-36); BILIRUBIN,DIRECT 0.2 mg/dL (0.0-0.4); BILIRUBIN,TOTAL 0.6 mg/dL (0.2-1.3); BLOOD UREA NITROGEN 12 mg/dL (7-20); CALCIUM 7.9 mg/dL (8.4-10.2); CARBON DIOXIDE 28 mmol/L (22-30); CHLORIDE 108 mmol/L (98-107); CREATININE RESULT 0.68 mg/dL (0.52-1.25); GLUCOSE 114 mg/dL (75-110); POTASSIUM 3.7 mmol/L (3.6-5.0); SODIUM 141.7 mmol/L (137-145); TOTAL PROTEIN 5.3 g/dL (6.3-8.2)
[2017-02-10 06:09] LABS: ABSOLUTE EOSINOPHILS # (AUTO) 0.1 10^3/uL (0.0-0.6); ABSOLUTE MONOCYTES (AUTO) 0.4 10^3/uL (0.1-1.4); ABSOLUTE NEUT (AUTO) 2.9 10^3/uL (1.7-8.2); BASOPHILS % (AUTO) 0.4 % (0-2); EOSINOPHILS % (AUTO) 1.4 % (0-6); HEMATOCRIT 28.2 % (36.0-47.0); HEMOGLOBIN 9.4 g/dL (12.0-15.5); LYMPHOCYTES % (AUTO) 37.1 % (13-45); MEAN CORPUSCULAR HGB CONC 33.2 g/dL (32.0-36.0); MEAN CORPUSCULAR VOLUME 90 fl (80-97); RED BLOOD COUNT 3.13 10^6/uL (3.72-5.28); SEGMENTED NEUTROPHILS % (AUTO) 53.1 % (42-78); WHITE BLOOD COUNT 5.4 10^3/uL (4.0-10.5)
[2017-02-10] MEDS: LANSOPRAZOLE 30 MG TAB.RAP.DR PO SCH (08:05)
[2017-02-10] MEDS: LIDOCAINE 2% VISCOUS SOLN 20 ML UDCUP PO PRN (08:06)
[2017-02-10] MEDS: NADOLOL 40 MG TABLET PO SCH (10:27)
--- NOTE | 2017-02-10 15:42 | RADIOLOGY REPORT (SQ) ---
EXAM DESCRIPTION: BARIUM SWALLOW ESOPHAGUS COMPLETED DATE/TIME: 02/10/2017 3:26 pm REASON FOR STUDY: gastrograffin, pain after variceal banding COMPARISON: None. TECHNIQUE: Under fluoroscopic guidance, patient ingested water soluble contrast. Fluoroscopic spot i mages and routine radiographic images acquired and stored on PACS. 12 MM BARIUM TABLET GIVEN: None LIMITATIONS: None. FLUOROSCOPY TIME: 0.56 minutes 16 images saved to PACS. FINDINGS: NEUROMUSCULAR COORDINATION OF SWALLOW: Normal. No aspiration. ESOPHAGEAL MOTILITY: Normal peristalsis. No esophageal spasm. ESOPHAGEAL MUCOSA: Normal mucosa without masses or ulceration. GASTRO-ESOPHAGEAL JUNCTION: No hiatal hernia or reflux. NON-GI TRACT STRUCTURES: No significant finding. OTHER: No other significant finding. IMPRESSION: NORMAL SINGLE CONTRAST SWALLOW. COMMENT: Quality ID [id number]: Final reports for procedures using fluoroscopy that document radiation exp osure indices, or exposure time and number of fluorographic images (if radiation exposure indices are not available) TECHNICAL DOCUMENTATION: JOB ID: [id number] [employer]- All Rights Reserved
[2017-02-10 15:57] LABS: HEMATOCRIT 30.9 % (36.0-47.0); HEMOGLOBIN 10.5 g/dL (12.0-15.5); HGB HCT DIFFERENCE 0.6; MEAN CORPUSCULAR HEMOGLOBIN 30.3 pg (27.0-33.4); MEAN CORPUSCULAR HGB CONC 33.9 g/dL (32.0-36.0); MEAN CORPUSCULAR VOLUME 89 fl (80-97); RED BLOOD COUNT 3.47 10^6/uL (3.72-5.28); RED CELL DISTRIBUTION WIDTH 15.1 % (11.5-14.0); WHITE BLOOD COUNT 7.9 10^3/uL (4.0-10.5)
[2017-02-10 16:59] VITALS: BP 134/60
--- NOTE | 2017-02-10 17:36 | PDOC DISCHARGE SUMMARY ---
General - Admit/Disc Date/PCP Admission Date/Primary Care Provider: 02/07/17 15:19 ROSLYN URIARTE PA-C Discharge Date: 02/10/17 - Discharge Diagnosis (1) Acute upper GI bleed Is this a current diagnosis for this admission?: Yes (2) Hypotension Is this a current diagnosis for this admission?: Yes (3) DM type 2 (diabetes mellitus, type 2) Is this a current diagnosis for this admission?: Yes (4) HTN (hypertension) Is this a current diagnosis for this admission?: Yes (5) HLD (hyperlipidemia) Is this a current diagnosis for this admission?: Yes (6) Non-alcoholic cirrhosis Is this a current diagnosis for this admission?: Yes (7) History of breast cancer Is this a current diagnosis for this admission?: Yes (8) Severe obesity (BMI 35.0-35.9 with comorbidity) Is this a current diagnosis for this admission?: Yes - Additional Information Resuscitation Status: Full Code Discharge Diet: Cardiac, Diabetic Discharge Activity: Activity As Tolerated, Slowly Increase Activity Home Medications: Ferrous Sulfate [Feosol 325 mg Tablet] 325 mg PO BID 02/07/17 Glimepiride [Amaryl] 2 mg PO QAM 02/07/17 Losartan Potassium [Cozaar 50 mg Tablet] 50 mg PO DAILY 02/07/17 Simvastatin [Zocor 10 mg Tablet] 10 mg PO QHS 02/07/17 Esomeprazole Magnesium [Nexium] 40 mg PO BID #60 capsule. 02/10/17 Metformin HCl [Metformin HCl ER] 1,000 mg PO DAILY #0 02/10/17 Nadolol [Corgard 40 mg Tablet] 40 mg PO DAILY #30 tablet 02/10/17 Sucralfate [Carafate Susp 1 gm/10 ml Udcup] 1 gm PO Q6 #60 udc 02/10/17 History of Present Illness History of Present Illness: SAURABH DURAND is a 66 year old female with a PMH of DM, HTN, HLD, anemia, cirrhosis, breast cancer with lumpectomy and radiation who presents to the emergency department with a one-day onset of melena and hematemesis. At 330 this morning feeling flushed and hot and diaphoretic and subsequently went to the bathroom and had a large dark stool. Patient subsequently had several other melanotic stools prompting her to activate EMS. Patient reports that she had several cups of emesis in the ambulance. Denies any changes in her medication or with excessive use of Motrin, Aleve, Goody's powders or aspirin. She reports she takes Aleve perhaps twice a week. Patient does report a questionable history in the early 90s of hepatitis. Patient is referred to the hospital service for upper GI bleed. Hospital Course Hospital Course: Started on Protonix and octreotide drip and GI was consulted. Patient was placed in ICU and given fluid resuscitation. Serial CBCs were monitored and patient did not require any blood transfusions. On 02/07/2017 patient underwent upper endoscopy with variceal banding. Octreotide was weaned off after this, and patient was able to tolerate oral intake without any hematemesis, nausea, vomiting, melena. On day of discharge, patient was noted to have a minor decrease in her hemoglobin which was repeated and found to be lab error. Patient had complained of some esophageal discomfort after her banding, and a Gastrografin study revealed no perforation. Patient was instructed to begin a weight loss program under the supervision of her physician. She is also instructed to follow-up with Dr. Aviles. Physical Exam Vital Signs: Temp Pulse Resp BP Pulse Ox 98.6 F 75 21 H 134/60 H 97 02/10/17 16:55 02/10/17 16:55 02/10/17 16:55 02/10/17 16:55 02/10/17 16:55 Intake & Output 02/09/17 02/10/17 02/11/17 06:59 06:59 06:59 Intake Total 2231 125 360 Output Total 3425 1500 Balance -1194 -1375 360 Weight 102 kg 105 kg Exam: GENERAL: No acute distress HEENT: Conjunctiva clear, nonicteric, moist mucous membranes, no JVD, midline trachea RESPIRATORY: CTAB CARDIAC: RRR, no rub or gallop ABDOMEN: Soft, nondistended, nontender, positive bowel sounds, no rebound, no guarding EXTREMETIES: No edema, cyanosis, clubbing NEUROLOGIC: Alert, oriented to person, CN's grossly intact SKIN: No rash, wounds PSYCH: Normal mood, normal affect Results Laboratory Results: 02/10/17 15:44 02/10/17 05:14 02/10/17 02/10/17 02/10/17 05:14 05:14 15:44 WBC 5.4 7.9 RBC 3.13 L 3.47 L Hgb 9.4 L 10.5 L Hct 28.2 L 30.9 L MCV 90 89 MCH 30.0 30.3 MCHC 33.2 33.9 RDW 15.0 H 15.1 H Plt Count 83 L 112 L Seg Neutrophils % 53.1 Lymphocytes % 37.1 Monocytes % 8.0 Eosinophils % 1.4 Basophils % 0.4 Absolute Neutrophils 2.9 Absolute Lymphocytes 2.0 Absolute Monocytes 0.4 Absolute Eosinophils 0.1 Absolute Basophils 0.0 Sodium 141.7 Potassium 3.7 Chloride 108 H Carbon Dioxide 28 Anion Gap 6 BUN 12 Creatinine 0.68 Est GFR ( Amer) > 60 Est GFR (Non-Af Amer) > 60 Glucose 114 H Calcium 7.9 L Total Bilirubin 0.6 AST 39 H ALT 59 H Alkaline Phosphatase 70 Total Protein 5.3 L Albumin 2.8 L 02/07/17 02/08/17 21:18 03:34 Troponin I < 0.012 < 0.012 Impressions: Esophagus X-Ray 02/10/17 00:00 IMPRESSION: NORMAL SINGLE CONTRAST SWALLOW. Qualifiers PATEINT BEING DISCHARGED WITH ANY OF THE FOLLOWING DIAGNOSIS?: No Plan Time Spent: Greater than 30 Minutes
== END 2017-02-10 17:18 | disposition home or self-care (01) | DRG 370 ==
LOC: ER 14:09 → EH 15:19 → UNDOADMIN 16:42 → EH 16:42 → ICU 18:35 → 3S 02-09 05:04
PROVIDERS: ADMIT Family Medicine; ATTEND Family Medicine
PROC: 06L34CZ Occlusion of Esophageal Vein with Extraluminal Device, Percutaneous Endoscopic Approach (ICD-10-PCS; 2017-02-07)
PROC: 30233N1 Transfusion of Nonautologous Red Blood Cells into Peripheral Vein, Percutaneous Approach (ICD-10-PCS; principal; 2017-02-07 19:00)
DX: I85.01 Esophageal varices with bleeding (principal); I10 Essential (primary) hypertension; E11.9 Type 2 diabetes mellitus without complications; D64.9 Anemia, unspecified; I95.9 Hypotension, unspecified; K74.60 Unspecified cirrhosis of liver; C50.919 Malignant neoplasm of unspecified site of unspecified female breast; E66.9 Obesity, unspecified; Z79.84 Long term (current) use of oral hypoglycemic drugs; Z79.899 Other long term (current) drug therapy; Z87.891 Personal history of nicotine dependence; Z91.040 Latex allergy status; Z88.2 Allergy status to sulfonamides; Z88.1 Allergy status to other antibiotic agents; Z91.09 Other allergy status, other than to drugs and biological substances; Z68.35 Body mass index [BMI] 35.0-35.9, adult
CPT/HCPCS: 36415; 36430; 43244; 74220; 80053; 82272; 82962; 83735; 84484; 85025; 85027; 85610; 85730; 86850; 86900; 86901; 86920; 94660; 96361; 96365; 99285; J0171; J1170; J1610; J1815; J1940; J2250; J2310; J2354; J2405; J3010; J3475; J3490; J7030; J7040; J7050; P9016; S0164

== ENCOUNTER 2017-03-13 15:23 | Day surgery (SDC) | payer MEDICARE, BC ==
[2017-03-13] MEDS ORDERED: NALOXONE HCL INJ/PF 0.4 MG/1 ML SDV ONE (16:08)
[2017-03-13] MEDS ORDERED: MIDAZOLAM 2 MG/2 ML INJ ONE (16:09)
[2017-03-13] MEDS ORDERED: FENTANYL CITRATE INJ/PF 100 MCG/2 ML AMPUL ONE (16:09)
[2017-03-13] MEDS ORDERED: FLUMAZENIL INJ 0.5 MG/5 ML VIAL IV ONE (16:09)
[2017-03-13] MEDS ORDERED: EPINEPHRINE INJ 1 MG/10 ML DISP.SYRIN ONE (16:10)
[2017-03-13] MEDS ORDERED: GLUCAGON,HUMAN RECOMB 1 MG INJ ONE (16:10)
[2017-03-13] MEDS: MIDAZOLAM 2 MG/2 ML INJ ONE ×2 (16:57→17:00)
--- NOTE | 2017-03-13 17:24 | Operative Report ---
Operative Report DATE OF SURGERY: 03/13/17 Operative Report: Pre-op diagnosis: History of variceal bleeding in January Post-op diagnosis: Small esophageal varices Surgery: Esophagogastroduodenoscopy with variceal rubberbanding Medications: Versed mg Fentanyl mcg IV push Tissue removed: None Procedure: After informed consent obtained from patient, the throat was sprayed with Hurricane and conscious sedation was achieved. The upper endoscope was inserted into the esophagus under direct vision and advanced into the stomach. The duodenum was entered and examined to the second part. Endoscope was then slowly pulled out of the patient as the mucosa was examined into details. Patient tolerated procedure well. Findings Esophagus: There were 2 small, short varices noted in the distal esophagus. 3 rubber bands were placed Antrum: Evidence for portal gastropathy Body: Normal Fundus: Normal Duodenum first part: Normal Duodenum second part: Normal Plan: Continue nadolol and repeat EGD in 6 months OPERATION: .
[2017-03-13 18:07] VITALS: BP 153/89
[2017-03-13 18:24] LABS: HEMATOCRIT 38.8 % (36.0-47.0); HGB HCT DIFFERENCE 0.2; MEAN CORPUSCULAR HEMOGLOBIN 30.8 pg (27.0-33.4); MEAN CORPUSCULAR HGB CONC 33.5 g/dL (32.0-36.0); MEAN CORPUSCULAR VOLUME 92 fl (80-97); RED BLOOD COUNT 4.23 10^6/uL (3.72-5.28); RED CELL DISTRIBUTION WIDTH 13.8 % (11.5-14.0); WHITE BLOOD COUNT 3.9 10^3/uL (4.0-10.5)
[2017-03-13 18:40] LABS: ALANINE AMINOTRANSFERASE 99 U/L (9-52); ALKALINE PHOSPHATASE 139 U/L (38-126); ASPARTATE AMINO TRANSFERASE 63 U/L (14-36); BILIRUBIN,DIRECT 0.3 mg/dL (0.0-0.4); BILIRUBIN,TOTAL 0.7 mg/dL (0.2-1.3); TOTAL PROTEIN 6.7 g/dL (6.3-8.2)
== END 2017-03-13 18:15 | disposition home or self-care (01) ==
LOC: END 15:23
PROVIDERS: ATTEND Internal Medicine Gastroenterology
PROC: 06L34CZ Occlusion of Esophageal Vein with Extraluminal Device, Percutaneous Endoscopic Approach (ICD-10-PCS; principal; 2017-03-13 16:15)
DX: I85.01 Esophageal varices with bleeding (principal); K31.9 Disease of stomach and duodenum, unspecified; K74.69 Other cirrhosis of liver; K76.0 Fatty (change of) liver, not elsewhere classified; D50.9 Iron deficiency anemia, unspecified; E11.9 Type 2 diabetes mellitus without complications; I10 Essential (primary) hypertension; E78.00 Pure hypercholesterolemia, unspecified; E66.9 Obesity, unspecified; Z79.899 Other long term (current) drug therapy; Z79.84 Long term (current) use of oral hypoglycemic drugs; Z87.891 Personal history of nicotine dependence; Z88.2 Allergy status to sulfonamides; Z88.1 Allergy status to other antibiotic agents; Z68.32 Body mass index [BMI] 32.0-32.9, adult
CPT/HCPCS: 43244; 36415; 82962; 85027; 80076; J2250; J3010; J0171; J1610; J2310; J3490

== ENCOUNTER → 2017-09-04 | Outpatient (CLI) | payer MEDICARE, BC ==
--- NOTE | 2017-09-04 10:11 | RADIOLOGY REPORT (SQ) ---
EXAM DESCRIPTION: U/S ABDOMEN COMPLETE W/O DOP COMPLETED DATE/TIME: 09/04/2017 8:34 am REASON FOR STUDY: NON ALCOHOLIC STEATOHEPATITIS (K75.81) K75.81 NONALCOHOLIC STEATOHEPATITIS (MORRIS) COMPARISON: Abdominal ultrasound 12/08/2016 CT abdomen pelvis 01/13/2016 TECHNIQUE: Dynamic and static grayscale images acquired of the abdomen and recorded on PACS. Additio nal selected color Doppler and spectral images recorded. LIMITATIONS: None. FINDINGS: PANCREAS: Midline pancreas unremarkable LIVER: Normal size liver. Difficult to penetrate with the ultrasound energy from diffuse fatty infil tration or diffuse hepatocellular disease. No gross masses. LIVER VASCULATURE: Normal directional flow of the main portal vein and hepatic veins. GALLBLADDER: Tiny stones in the gallbladder. No gallbladder wall thickening or pericholecystic fluid . ULTRASOUND-DETECTED AGNULO'S SIGN: Negative. INTRAHEPATIC DUCTS AND COMMON DUCT: CBD and intrahepatic ducts normal caliber. No filling defects. INFERIOR VENA CAVA: Normal flow. AORTA: No aneurysm. RIGHT KIDNEY: Normal size. Normal echogenicity. No solid or suspicious masses. No hydronephros is. No calcifications. LEFT KIDNEY: Normal size. Normal echogenicity. No solid or suspicious masses. No hydronephrosi s. No calcifications. SPLEEN: 13 cm in length, similar compared to CT exam 01/13/2016 PERITONEAL AND PLEURAL SPACES: No ascites or effusions. OTHER: No other significant finding. IMPRESSION: Echogenic liver from diffuse hepatocellular disease or fatty infiltration Tiny stones in the gallbladder without gallbladder wall thickening or pericholecystic fluid. Negativ e sonographic Angulo's sign. Stable borderline splenomegaly TECHNICAL DOCUMENTATION: JOB ID: [id number]- All Rights Reserved
== END ==
LOC: RAD 07:34
PROVIDERS: ATTEND Family Medicine Geriatric Medicine
DX: K75.81 Nonalcoholic steatohepatitis (NASH) (principal)
CPT/HCPCS: 76700

== ENCOUNTER 2017-09-25 15:08 | Day surgery (SDC) | payer MEDICARE, BC ==
[2017-09-25] MEDS ORDERED: NALOXONE HCL INJ/PF 0.4 MG/1 ML SDV ONE (15:24)
[2017-09-25] MEDS ORDERED: FLUMAZENIL INJ 0.5 MG/5 ML VIAL ONE (15:24)
[2017-09-25] MEDS ORDERED: GLUCAGON,HUMAN RECOMB 1 MG INJ ONE (15:25)
[2017-09-25] MEDS ORDERED: EPINEPHRINE INJ 1 MG/10 ML DISP.SYRIN ONE (15:25)
[2017-09-25] MEDS: MIDAZOLAM 2 MG/2 ML INJ ONE ×3 (17:29→17:42)
[2017-09-25] MEDS: FENTANYL CITRATE INJ/PF 100 MCG/2 ML AMPUL ONE ×2 (17:31→17:33)
--- NOTE | 2017-09-25 17:49 | Operative Report ---
Operative Report DATE OF SURGERY: 09/25/17 Operative Report: Pre-op diagnosis: History of cirrhosis and esophageal varices Post-op diagnosis: Small esophageal varices Surgery: Esophagogastroduodenoscopy with Medications: Versed 4mg Fentanyl 100mcg IV push Tissue removed: Antral biopsy for pathology Procedure: After informed consent obtained from patient, the throat was sprayed with Hurricane and conscious sedation was achieved. The upper endoscope was inserted into the esophagus under direct vision and advanced into the stomach. The duodenum was entered and examined to the second part. Endoscope was then slowly pulled out of the patient as the mucosa was examined into details. Patient tolerated procedure well. Findings Esophagus: 2 small short columns of varices were identified in the distal esophagus with scarring from previous banding. 2 rubber bands were applied Antrum: Normal Body: Normal Fundus: Normal Duodenum first part: Normal Duodenum second part: Normal Plan: Await pathology. Continue nadolol and repeat EGD in 1 year OPERATION: .
[2017-09-25 18:50] VITALS: BP 174/81
== END 2017-09-25 18:48 | disposition home or self-care (01) ==
LOC: END 15:08
PROVIDERS: ATTEND Internal Medicine Gastroenterology
PROC: 06L38CZ Occlusion of Esophageal Vein with Extraluminal Device, Via Natural or Artificial Opening Endoscopic (ICD-10-PCS; principal; 2017-09-25 15:45)
DX: I85.00 Esophageal varices without bleeding (principal); K74.69 Other cirrhosis of liver; E11.9 Type 2 diabetes mellitus without complications; I10 Essential (primary) hypertension; E78.00 Pure hypercholesterolemia, unspecified; D50.9 Iron deficiency anemia, unspecified; E66.9 Obesity, unspecified; Z79.899 Other long term (current) drug therapy; Z79.84 Long term (current) use of oral hypoglycemic drugs; Z88.2 Allergy status to sulfonamides; Z88.8 Allergy status to other drugs, medicaments and biological substances; Z68.33 Body mass index [BMI] 33.0-33.9, adult
CPT/HCPCS: 43244; 82962; J2250; J3010; J0171; J1610; J2310; J3490

== ENCOUNTER → 2018-05-20 | Outpatient (CLI) | payer MEDICARE, BC ==
--- NOTE | 2018-05-20 15:56 | XCELERA REPORT ---
[address] [address] Transthoracic Echocardiogram Report Name: SAURABH DURAND Age: 67 yrs Gender: Female : 1950 Patient Status: Preadmit Patient Location: [facility] Study Date: 05/20/2018 03:01 PM Height: 68 in Weight: 219 lb BSA: 2.1 m2 Procedure: A complete two-dimensional transthoracic echocardiogram was performed (2D, M-mode, spectral and color flow Doppler). The study was technically adequate with some images being suboptimal in quality. Reason For Study: AO STENOSIS Ordering Physician: GENTRY URIARTE Performed By: Roxane Nuñez Interpretation Summary Left ventricular systolic function is low normal. The left ventricle is grossly normal size. There is mild concentric left ventricular hypertrophy. Doppler measurements suggest pseudonormalized left ventricular relaxation, which is associated with grade II/IV or mild to moderate diastolic dysfunction Wall motion cannot be accurately commented on, but no definite regional wall motion abnormalities noted. The right ventricle is grossly normal size. The right ventricular systolic function is normal. The right atrium is normal in size The left atrium is moderately dilated. There is a mild amount of mitral regurgitation There is no mitral valve stenosis. There is no aortic valve stenosis No aortic regurgitation is present. There is a trace or physiologic amount of tricuspid regurgitation Tricuspid regurgitation jet envelope not well defined to measure RV systolic pressure accurately. The aortic root is not well visualized but is probably normal size. The inferior vena cava appeared normal and decreased > 50% with respiration (RAP 5-10 mmHg) Minimal pericardial effusion. MMode/2D Measurements & Calculations RVDd: 3.7 cm LVIDd: 4.4 cm FS: 36.7 % Ao root diam: 2.4 cm IVSd: 1.1 cm LVIDs: 2.8 cm EDV(Teich): 86.0 ml Ao root area: 4.5 cm2 LVPWd: 1.1 cm ESV(Teich): 28.6 ml LA dimension: 4.6 cm EF(Teich): 66.7 % LVOT diam: 2.2 cm LVOT area: 4.0 cm2 Doppler Measurements & Calculations MV E max austyn: MV P1/2t max austyn: Ao V2 max: LV V1 max P.7 cm/sec 100.2 cm/sec 242.2 cm/sec 5.6 mmHg MV A max austyn: MV P1/2t: 94.2 msec Ao max PG: LV V1 mean P.7 cm/sec MVA(P1/2t): 2.3 cm2 23.5 mmHg 2.2 mmHg MV E/A: 0.97 MV dec slope: Ao V2 mean: LV V1 max: 160.8 cm/sec 118.0 cm/sec 311.5 cm/sec2 Ao mean PG: LV V1 mean: MV dec time: 0.30 sec 12.2 mmHg 64.3 cm/sec Ao V2 VTI: 52.6 cmLV V1 VTI: 17.7 cm MURALI(I,D): 1.3 cm2 MURALI(V,D): 1.9 cm2 SV(LVOT): 69.9 ml PA V2 max: TR max autsyn: MV P1/2t-pr_phl: 86.4 cm/sec 263.3 cm/sec 94.2 msec PA max P.0 mmHg TR max P.7 mmHg Left Ventricle The left ventricle is grossly normal size. There is mild concentric left ventricular hypertrophy. Left ventricular systolic function is low normal. Doppler measurements suggest pseudonormalized left ventricular relaxation, which is associated with grade II/IV or mild to moderate diastolic dysfunction. Wall motion cannot be accurately commented on, but no definite regional wall motion abnormalities noted. Right Ventricle The right ventricle is grossly normal size. There is normal right ventricular wall thickness. The right ventricular systolic function is normal. Atria The right atrium is normal in size. The left atrium is moderately dilated. Interarterial septum not well visualized and not well dopplered. Cannot comment on ASD/PFO presence. Mitral Valve There is mild to moderate mitral annular calcification. There is no mitral valve stenosis. There is a mild amount of mitral regurgitation. Aortic Valve The aortic valve is not well visualized secondary to technical limitations. The aortic valve opens well. There is no aortic valve stenosis. No aortic regurgitation is present. Tricuspid Valve The tricuspid valve is not well visualized, but is grossly normal. There is no tricuspid stenosis. There is a trace or physiologic amount of tricuspid regurgitation. Tricuspid regurgitation jet envelope not well defined to measure RV systolic pressure accurately. Pulmonic Valve The pulmonic valve is not well visualized. Great Vessels The aortic root is not well visualized but is probably normal size. The inferior vena cava appeared normal and decreased > 50% with respiration (RAP 5-10 mmHg). Effusions Minimal pericardial effusion. : GENTRY URIARTE > Rafael Rehman
== END ==
LOC: SP 16:45
PROVIDERS: ATTEND Internal Medicine
DX: I35.0 Nonrheumatic aortic (valve) stenosis (principal)
CPT/HCPCS: 93306

== ENCOUNTER → 2018-06-28 | Outpatient (CLI) | payer MEDICARE, BC ==
--- NOTE | 2018-06-28 12:42 | WOMENS IMAGING REPORT ---
EXAM DESCRIPTION: U/S ABDOMEN LIMITED COMPLETED DATE/TIME: 06/28/2018 9:08 am REASON FOR STUDY: CIRRHOSIS, NON-ALCOHOL K74.69 OTHER CIRRHOSIS OF LIVER K76.0 FATTY (CHANGE OF) L IVER, NOT ELSEWHERE CLASSIFIED COMPARISON: 116 TECHNIQUE: Dynamic and static grayscale images acquired of the abdomen and recorded on PACS. Additio nal selected color Doppler and spectral images recorded. LIMITATIONS: None. FINDINGS: PANCREAS: Head and body normal. Tail not well seen. LIVER: Normal size, increased echogenicity. No masses. LIVER VASCULATURE: Normal directional flow of the main portal vein and hepatic veins. GALLBLADDER: Small gallstones are present. No wall thickening or pericholecystic fluid. ULTRASOUND-DETECTED ANGULO'S SIGN: Negative. INTRAHEPATIC DUCTS AND COMMON DUCT: CBD and intrahepatic ducts normal caliber. No filling defects. INFERIOR VENA CAVA: Patent. AORTA: No aneurysm. The distal aorta was not well seen. RIGHT KIDNEY: Normal size, 12.1 cm. Normal echogenicity. No solid or suspicious masses. No hydroneph rosis. No calcifications. PERITONEAL AND RIGHT PLEURAL SPACE: No ascites or effusions. OTHER: No other significant findings. IMPRESSION: Fatty infiltration of the liver. Cholelithiasis. TECHNICAL DOCUMENTATION: JOB ID: [id number] [employer]- All Rights Reserved Reading location - IP/workstation name: [email or web address]
== END ==
LOC: WI 08:05
PROVIDERS: ATTEND Internal Medicine Gastroenterology
DX: K74.69 Other cirrhosis of liver (principal); K76.0 Fatty (change of) liver, not elsewhere classified
CPT/HCPCS: 76705

== ENCOUNTER 2018-10-29 14:56 | Day surgery (SDC) | payer MEDICARE, BC ==
[2018-10-29] MEDS ORDERED: NALOXONE HCL INJ/PF 0.4 MG/1 ML SDV ONE (15:45)
[2018-10-29] MEDS ORDERED: FLUMAZENIL INJ 0.5 MG/5 ML VIAL ONE (15:45)
[2018-10-29] MEDS ORDERED: DIPHENHYDRAMINE HCL 50 MG/ML VIAL ONE (15:45)
[2018-10-29] MEDS ORDERED: FENTANYL CITRATE INJ/PF 100 MCG/2 ML AMPUL ONE (15:45)
[2018-10-29] MEDS ORDERED: ONDANSETRON HCL INJ/PF 4 MG/2 ML SDV ONE (15:45)
[2018-10-29] MEDS ORDERED: EPINEPHRINE INJ 1 MG/10 ML DISP.SYRIN ONE (15:46)
[2018-10-29] MEDS ORDERED: GLUCAGON,HUMAN RECOMB 1 MG INJ ONE (15:46)
[2018-10-29] MEDS: MIDAZOLAM 2 MG/2 ML INJ ONE ×2 (16:16→16:30)
--- NOTE | 2018-10-29 16:48 | Operative Report ---
Operative Report DATE OF SURGERY: 10/29/18 Operative Report: Pre-op diagnosis: History of cirrhosis and esophageal varices Post-op diagnosis: 1. Small esophageal varices 2. Gastric antral polyp 3. Antral gastritis Surgery: Esophagogastroduodenoscopy with biopsy and variceal rubber banding Medications: Versed 3mg Fentanyl 100mcg IV push Tissue removed: Antral, antral polyp, gastric body biopsy for pathology Procedure: After informed consent obtained from patient, the throat was sprayed with Hurricane and conscious sedation was achieved. The upper endoscope was inserted into the esophagus under direct vision and advanced into the stomach. The duodenum was entered and examined to the second part. Endoscope was then slowly pulled out of the patient as the mucosa was examined into details. Patient tolerated procedure well. Findings Esophagus: There was a single small column of varix noted in the distal esophagus with areas of scarring. 3 rubber bands were applied over this varix. Antrum: Mild to moderate erythema was noted in the gastric antrum and part of the gastric body. A friable 15 mm polyp was identified and biopsy was taken. There was some bleeding after biopsy which appeared to resolve. Body: Mild erythema Fundus: Normal Duodenum first part: Normal Duodenum second part: Normal Plan: Await pathology. Continue Nexium but use 20 mg daily. Follow-up EGD in 1 year OPERATION: .
[2018-10-29 17:33] LABS: INTERNATIONAL RATION (INR) 0.94; PROTHROMBIN TIME 13.1 SEC (11.4-15.4)
[2018-10-29 17:43] LABS: HEMATOCRIT 39.5 % (36.0-47.0); HEMOGLOBIN 13.4 g/dL (12.0-15.5); MEAN CORPUSCULAR VOLUME 91 fl (80-97); RED BLOOD COUNT 4.33 10^6/uL (3.72-5.28); RED CELL DISTRIBUTION WIDTH 13.5 % (11.5-14.0); WHITE BLOOD COUNT 4.4 10^3/uL (4.0-10.5)
[2018-10-29 17:47] VITALS: BP 133/66
[2018-10-29 17:53] LABS: ALANINE AMINOTRANSFERASE 64 U/L (9-52); ALBUMIN 3.9 g/dL (3.5-5.0); ALKALINE PHOSPHATASE 136 U/L (38-126); ANION GAP 9 (5-19); ASPARTATE AMINO TRANSFERASE 60 U/L (14-36); BILIRUBIN,DIRECT 0.3 mg/dL (0.0-0.4); BILIRUBIN,TOTAL 0.9 mg/dL (0.2-1.3); BLOOD UREA NITROGEN 12 mg/dL (7-20); CALCIUM 9.3 mg/dL (8.4-10.2); CARBON DIOXIDE 26 mmol/L (22-30); CHLORIDE 105 mmol/L (98-107); GLUCOSE 89 mg/dL (75-110); POTASSIUM 4.2 mmol/L (3.6-5.0); TOTAL PROTEIN 6.7 g/dL (6.3-8.2)
[2018-10-29 17:59] LABS: PLATELET COUNT 88 10^3/uL (150-450)
== END 2018-10-29 18:25 | disposition home or self-care (01) ==
LOC: END 14:56
PROVIDERS: ATTEND Internal Medicine Gastroenterology
DX: I85.00 Esophageal varices without bleeding (principal); K29.50 Unspecified chronic gastritis without bleeding; K31.7 Polyp of stomach and duodenum
CPT/HCPCS: 43239; 43244; 36415; 82962; 85027; 85610; 80076; 80048; 88342 ×2; 88305 ×2; J2250; J3010; J0171; J1200; J1610; J2310; J2405; J3490

== ENCOUNTER → 2018-12-18 | Outpatient (CLI) | payer MEDICARE, BC ==
--- NOTE | 2018-12-18 09:10 | RADIOLOGY REPORT (SQ) ---
EXAM DESCRIPTION: U/S ABDOMEN LIMITED W/O DOP COMPLETED DATE/TIME: 12/18/2018 8:17 am REASON FOR STUDY: K81.9 CHOLECYSTITIS, UNSPECIFIED K81.9 CHOLECYSTITIS, UNSPECIFIED COMPARISON: 06/28/2018 TECHNIQUE: Dynamic and static grayscale images acquired of the abdomen and recorded on PACS. Additio nal selected color Doppler and spectral images recorded. LIMITATIONS: None. FINDINGS: PANCREAS: No masses. Visualized pancreatic duct normal caliber. LIVER: Fatty liver. The liver measures 14.5 cm in length, normal size. LIVER VASCULATURE: Normal directional flow of the main portal vein and hepatic veins. GALLBLADDER: Gallstones andsmall amount of gallbladder sludge. Small amount of pericholecystic flui d suggested. ULTRASOUND-DETECTED ANGULO'S SIGN: Negative. INTRAHEPATIC DUCTS AND COMMON DUCT: CBD measures 3.7 mm in diameter, normal. The intrahepatic ducts normal caliber. No filling defects. INFERIOR VENA CAVA: Normal flow. AORTA: No aneurysm. RIGHT KIDNEY: The right kidney measures 11.3 cm in length, normal size. Normal echogenicity. No sarai d or suspicious masses. No hydronephrosis. No calcifications. PERITONEAL AND RIGHT PLEURAL SPACE: No ascites or effusions. OTHER: No other significant findings. IMPRESSION: 1. As on the prior examination dated 06/28/2018, fatty liver. 2. Cholelithiasis and small amount of gallbladder sludge are again noted. Small amount of pericholec ystic fluid. Clinical correlation is suggested. TECHNICAL DOCUMENTATION: JOB ID: [id number] [employer]- All Rights Reserved Reading location - IP/workstation name: [email or web address]
== END ==
LOC: RAD 07:33
PROVIDERS: ATTEND Internal Medicine
DX: K80.10 Calculus of gallbladder with chronic cholecystitis without obstruction (principal)
CPT/HCPCS: 76705

== ENCOUNTER → 2019-02-13 | Outpatient (CLI) | payer MEDICARE, BC ==
--- NOTE | 2019-02-13 16:09 | RADIOLOGY REPORT (SQ) ---
EXAM DESCRIPTION: VENOUS UNILATERAL LOWER COMPLETED DATE/TIME: 02/13/2019 1:51 pm REASON FOR STUDY: RLE SWELLING I82.409 ACUTE EMBOLISM AND THOMBOS UNSP DEEP VN UNSP LOWER E COMPARISON: None. TECHNIQUE: Dynamic and static guzmán scale and color images acquired of the right leg venous system. S elected spectral images acquired with additional compression and augmentation maneuvers. The contrala teral common femoral vein and saphenofemoral junction were also imaged. Images stored on PACS. LIMITATIONS: None. FINDINGS: RIGHT COMMON FEMORAL: Normal phasicity, compression and augmentation. No visualized echogenic material on g ray scale. No defects on color images. FEMORAL: Normal compression and augmentation. No visualized echogenic material on guzmán scale. No defe cts on color images. POPLITEAL: Normal compression, augmentation. No visualized echogenic material on guzmán scale. No defec ts on color images. POSTERIOR TIBIAL AND PERONEAL VEINS: Normal compression, augmentation. No visualized echogenic materi al on guzmán scale. No defects on color images. GSV and SSV: Normal compression, augmentation. No visualized echogenic material on guzmán scale. No def ects on color images. ANY DEEP VENOUS INSUFFICIENCY: Not evaluated. ANY EVIDENCE OF POPLITEAL CYST: No. OTHER: Patient indicates a palpable tender area in the medial lower right thigh. In this area, a dil ated superficial varicosity is present with reflux on Valsalva. No evidence of superficial venous th rombosis in this vessel were the right thigh saphenous vein system LEFT COMMON FEMORAL VEIN AND SAPHENOFEMORAL JUNCTION: Normal phasicity, compression and augmentation. No visualized echogenic material on guzmán scale. No de fects on color images. IMPRESSION: NO EVIDENCE OF DVT OR SVT IN THE RIGHT LEG. AREA OF CLINICAL CONCERN INDICATED BY THE PATIENT IS A SUPERFICIAL VARICOSITY WHICH EXHIBITS REFLUX O N VALSALVA. NO SUPERFICIAL VENOUS THROMBOSIS RIGHT LEG. TECHNICAL DOCUMENTATION: JOB ID: [id number] [employer]- All Rights Reserved Reading location - IP/workstation name: [email or web address]
== END ==
LOC: SP 12:46
PROVIDERS: ATTEND Internal Medicine
DX: I82.409 Acute embolism and thrombosis of unspecified deep veins of unspecified lower extremity (principal)
CPT/HCPCS: 93971

== ENCOUNTER 2019-04-04 12:07 | Day surgery (SDC) | payer MEDICARE, BC ==
--- NOTE | 2019-03-28 09:24 | RADIOLOGY REPORT (SQ) ---
EXAM DESCRIPTION: CHEST PA/LATERAL COMPLETED DATE/TIME: 03/28/2019 9:14 am REASON FOR STUDY: PREOP;COUGH COMPARISON: 01/13/2016 EXAM PARAMETERS: NUMBER OF VIEWS: two views TECHNIQUE: Digital Frontal and Lateral radiographic views of the chest acquired. RADIATION DOSE: NA LIMITATIONS: none FINDINGS: LUNGS AND PLEURA: No opacities, masses or pneumothorax. No pleural effusion. MEDIASTINUM AND HILAR STRUCTURES: No masses or contour abnormalities. HEART AND VASCULAR STRUCTURES: Heart normal size. No evidence for failure. BONES: No acute findings. HARDWARE: None in the chest. OTHER: No other significant finding. IMPRESSION: No focal airspace disease or other evidence of acute cardiopulmonary process. TECHNICAL DOCUMENTATION: JOB ID: [id number] [employer]- All Rights Reserved Reading location - IP/workstation name: [email or web address]
[2019-03-28 09:56] LABS: HEMATOCRIT 40.1 % (36.0-47.0); HEMOGLOBIN 13.5 g/dL (12.0-15.5); MEAN CORPUSCULAR HEMOGLOBIN 30.6 pg (27.0-33.4); MEAN CORPUSCULAR HGB CONC 33.5 g/dL (32.0-36.0); MEAN CORPUSCULAR VOLUME 91 fl (80-97); RED BLOOD COUNT 4.39 10^6/uL (3.72-5.28); RED CELL DISTRIBUTION WIDTH 13.6 % (11.5-14.0); WHITE BLOOD COUNT 4.3 10^3/uL (4.0-10.5)
[2019-03-28 10:32] LABS: ALKALINE PHOSPHATASE 162 U/L (38-126); ANION GAP 8 (5-19); ASPARTATE AMINO TRANSFERASE 51 U/L (14-36); BILIRUBIN,DIRECT 0.3 mg/dL (0.0-0.4); BILIRUBIN,TOTAL 1.1 mg/dL (0.2-1.3); BLOOD UREA NITROGEN 10 mg/dL (7-20); CARBON DIOXIDE 29 mmol/L (22-30); CHLORIDE 106 mmol/L (98-107); GLUCOSE 144 mg/dL (75-110); POTASSIUM 4.5 mmol/L (3.6-5.0)
[2019-03-28 11:38] LABS: PLATELET COUNT 97 10^3/uL (150-450)
--- NOTE | 2019-03-28 13:20 | EKG REPORT ---
SEVERITY:- NORMAL ECG - SINUS RHYTHM : Confirmed by: Cash Cortez MD 28-Mar-2019 13:19:20
[~2019-04-04 12:07] MED LIST: CEFOXITIN SODIUM 2 GM in DEXTROSE 5%-WATER 100 ML IV PRN; DEXAMETHASONE SOD PHOSPHATE INJ 4 MG/1 ML VIAL ONE; GLYCOPYRROLATE 1 MG/5 ML VIAL ONE; LACTATED RINGERS 1000 ML IV PRN; LIDOCAINE 0.5% INJ-PF (5 MG/ML) 50 ML SDV SUBCUT PRN; NEOSTIGMINE METHYLSULFATE 10 MG/10 ML VIAL ONE; ONDANSETRON HCL INJ/PF 4 MG/2 ML SDV ONE; ROCURONIUM BROMIDE INJ 50 MG/5 ML VIAL IV ONE
[2019-04-04] MEDS ORDERED: BUPIVACAINE HCL 0.25 % INJ/PF (2.5 MG/1 ML) 30 ML VIAL ONE (16:41)
[2019-04-04] MEDS ORDERED: PROPOFOL INJ 200 MG/20 ML VIAL IV ONE (16:51)
[2019-04-04] MEDS ORDERED: HYDROMORPHONE HCL INJ/PF 2 MG/ML AMPULE ONE (16:51)
[2019-04-04] MEDS ORDERED: FENTANYL CITRATE INJ/PF 250 MCG/5 ML AMPULE ONE (16:51)
[2019-04-04] MEDS ORDERED: MIDAZOLAM 2 MG/2 ML INJ ONE (16:51)
[2019-04-04] MEDS ORDERED: MEPERIDINE HCL/PF INJ 25 MG/1 ML DISP.SYRIN IV PRN (18:08)
[2019-04-04] MEDS ORDERED: DIPHENHYDRAMINE HCL 50 MG/ML VIAL IV PRN (18:08)
[2019-04-04] MEDS ORDERED: PROMETHAZINE HCL INJ 25 MG/1 ML VIAL IV PRN (18:08)
[2019-04-04] MEDS ORDERED: FENTANYL CITRATE INJ/PF 100 MCG/2 ML AMPUL IV PRN ×3 (18:08)
[2019-04-04] MEDS ORDERED: MORPHINE SULFATE 10 MG/ML INJ IV PRN (18:08)
--- NOTE | 2019-04-04 18:42 | Operative Report ---
Nonrecallable Operative Report DATE OF SURGERY: 04/04/19 PREOPERATIVE DIAGNOSIS: Symptomatic gallstones POSTOPERATIVE DIAGNOSIS: Chronic cholecystitis OPERATION: Laparoscopic cholecystectomy SURGEON: JULIANA MIJARES ANESTHESIA: GA TISSUE REMOVED OR ALTERED: Gallbladder COMPLICATIONS: None apparent ESTIMATED BLOOD LOSS: 30 cc PROCEDURE: Drains/implants: None. Procedure in detail: After informed consent was obtained, the patient was brought to the operating room and laid in the supine position. The area of the abdomen was prepped and draped in a normal sterile fashion. A supraumbilical incision was created with a 15 blade scalpel. This was deepened using sharp and blunt dissection. The cicatrix was identified, grasped with a Harish clamp, and retracted upwards. The linea alba fascia was incised sharply, the abdomen was entered sharply. The balloon trocar was inserted, and pneumoperitoneum was achieved. A subxiphoid 5 mm port was placed under direct laparoscopic visualization. 2 more 5 mm ports were placed in the right upper quadrant in similar fashion. Atraumatic graspers were placed through the 5 mm ports. The liver was very cirrhotic in appearance. The gallbladder was grasped and retracted cephalad. There was a moderate inflammatory reaction around the gallbladder, consistent with chronic cholecystitis. The omentum was freed from the gallbladder using sharp and blunt dissection. The infundibulum was retracted laterally. Dissection was begun in the triangle of Calot. The cystic duct and cystic artery were fully visualized and skeletonized, seeing the liver through the triangle. The cystic duct appeared very dilated and short. The cystic artery was then clipped and cut with laparoscopic instruments, after the critical view of safety was obtained. The cystic duct was felt to be too large to accommodate an Endo Clip. Secondary to this the gallbladder was freed from the liver using sharp dissection, blunt dissection, and electrocautery. Once the gallbladder was freed, a PDS Endoloop was secured around the infundibulum/cystic duct junction. The gallbladder was then amputated and placed into an Endo Catch bag and pulled out through the umbilicus. The camera was reinserted. The hilum was inspected. It was found to be free of any leakage of blood or bile. Once this was confirmed, the abdomen was copiously irrigated and suctioned until the effluent was clear. The 5 mm trochars were then removed under direct laparoscopic visualization. The 12 mm trocar was removed, and pneumoperitoneum was relieved. The supraumbilical fascia was closed using 0 Vicryl suture in [id number] fashion. The overlying skin was closed using 4-0 Vicryl Rapide suture in sub cuticular fashion. Dressings were placed and the procedure was concluded. All sponge, instrument, needle counts were correct x2. Condition: Stable.
--- NOTE | 2019-04-04 18:48 | Discharge Summary ---
Discharge Summary (SDC) - Discharge Final Diagnosis: Chronic cholecystitis Date of Surgery: 04/04/19 Discharge Date: 04/04/19 Condition: Stable Forms: ASU Anesthesia D/C Instruction, Discharge POC-Surgical Service Treatment or Instructions: Discharge home. Diet as tolerated. Activity: No lifting greater than 10 pounds x 2 weeks. Follow-up with me in 7 to 10 days. F[place]enden 10/325 mg p.o. every 6 hours as needed for pain. Okay to shower on Sunday. Referrals: JLUIANA MIJARES MD [ACTIVE STAFF] - Discharge Diet: As Tolerated Respiratory Treatments at Home: Deep Breathing/Coughing, Incentive Spirometer Discharge Activity: No Lifting Over 10 Pounds Home Care Assistance: None Needed Report the Following to Your Physician Immediately: Shortness of Breath, Nausea, Vomiting, Increase in Pain, Yellow Skin, Fever over 101 Degrees, Unusual Bleeding, Redness
[2019-04-04] MEDS ORDERED: KETOROLAC TROMETHAMINE INJ/PF 30 MG/1 ML SDV ONE (18:57)
[2019-04-04] MEDS: FENTANYL CITRATE INJ/PF 100 MCG/2 ML AMPUL ONE ×2 (18:58→19:05)
[2019-04-04 20:24] VITALS: BP 139/56
== END 2019-04-04 22:45 | disposition home or self-care (01) ==
LOC: OROUT 12:07 → 5 20:02 → OROUT 22:45
PROVIDERS: ATTEND Surgery
DX: K80.20 Calculus of gallbladder without cholecystitis without obstruction (principal); E11.9 Type 2 diabetes mellitus without complications; I85.00 Esophageal varices without bleeding; K75.81 Nonalcoholic steatohepatitis (NASH); I10 Essential (primary) hypertension; E78.00 Pure hypercholesterolemia, unspecified; Z85.3 Personal history of malignant neoplasm of breast; Z87.891 Personal history of nicotine dependence; Z79.84 Long term (current) use of oral hypoglycemic drugs; Z79.899 Other long term (current) drug therapy; K80.10 Calculus of gallbladder with chronic cholecystitis without obstruction
CPT/HCPCS: 93005; 36415; 82962; 85027; 80053; 88304 ×2; 71046; 93010; 47562; J2250; J3490 ×2; J1100; J3010 ×2; J1885; J2710; J1170; J2405; J7060; J2704; J0694; 790

== ENCOUNTER → 2019-09-19 | Outpatient (CLI) | payer MEDICARE, BC ==
--- NOTE | 2019-09-19 12:34 | WOMENS IMAGING REPORT ---
EXAM DESCRIPTION: U/S ABDOMEN LIMITED COMPLETED DATE/TIME: 09/19/2019 9:46 am REASON FOR STUDY: K74.69 OTHER CIRRHOSIS OF LIVER K74.69 OTHER CIRRHOSIS OF LIVER COMPARISON: 12/18/2018 TECHNIQUE: Dynamic and static grayscale images acquired of the abdomen and recorded on PACS. Additio nal selected color Doppler and spectral images recorded. LIMITATIONS: None. FINDINGS: PANCREAS: No masses. The tail was poorly seen. LIVER: Small, 12.5 cm. Nodular margin. Increased echogenicity. LIVER VASCULATURE: Normal directional flow of the main portal vein and hepatic veins. GALLBLADDER: Surgically absent. ULTRASOUND-DETECTED ANGULO'S SIGN: Not applicable. INTRAHEPATIC DUCTS AND COMMON DUCT: CBD and intrahepatic ducts normal caliber. No filling defects. INFERIOR VENA CAVA: Normal flow. AORTA: Proximal aorta is normal. Mid and distal aorta were not seen. RIGHT KIDNEY: Normal size, 10.3 cm. Normal echogenicity. No solid or suspicious masses. No hydroneph rosis. No calcifications. PERITONEAL AND RIGHT PLEURAL SPACE: Ascites is present. OTHER: Splenomegaly. The spleen measures 17 cm. IMPRESSION: Hepatic cirrhosis. Hepatic steatosis. Splenomegaly. There is ascites. TECHNICAL DOCUMENTATION: JOB ID: [id number] [employer]- All Rights Reserved Reading location - IP/workstation name: [email or web address]
== END ==
LOC: WI 08:45
PROVIDERS: ATTEND Physician Assistant
DX: K74.69 Other cirrhosis of liver (principal); R18.8 Other ascites; R16.1 Splenomegaly, not elsewhere classified
CPT/HCPCS: 76705

== ENCOUNTER 2019-09-30 15:05 | Day surgery (SDC) | payer MEDICARE, BC ==
[2019-09-30] MEDS ORDERED: ONDANSETRON HCL INJ/PF 4 MG/2 ML SDV ONE (15:51)
[2019-09-30] MEDS ORDERED: DIPHENHYDRAMINE HCL 50 MG/ML VIAL ONE (15:51)
[2019-09-30] MEDS ORDERED: FLUMAZENIL INJ 0.5 MG/5 ML VIAL ONE (15:52)
[2019-09-30] MEDS ORDERED: GLUCAGON,HUMAN RECOMB 1 MG INJ ONE (15:52)
[2019-09-30] MEDS ORDERED: EPINEPHRINE INJ 1 MG/10 ML DISP.SYRIN ONE (15:52)
[2019-09-30] MEDS ORDERED: NALOXONE HCL INJ/PF 0.4 MG/1 ML SDV ONE (15:52)
[2019-09-30] MEDS: MIDAZOLAM 2 MG/2 ML INJ ONE ×2 (16:34→16:42)
[2019-09-30] MEDS: FENTANYL CITRATE INJ/PF 100 MCG/2 ML AMPUL ONE ×2 (16:36→16:40)
--- NOTE | 2019-09-30 17:14 | Operative Report ---
Operative Report DATE OF SURGERY: 09/30/19 Operative Report: Pre-op diagnosis: History of cirrhosis, esophageal varices and possible celiac disease Post-op diagnosis: 1. Small esophageal varices 2. Gastric antral polyp Surgery: Esophagogastroduodenoscopy with biopsy and variceal rubber banding Medications: Versed mg Fentanyl mcg IV push Tissue removed: Duodenal and gastric polyp biopsy for pathology Procedure: After informed consent obtained from patient, the throat was sprayed with Hurricane and conscious sedation was achieved. The upper endoscope was inserted into the esophagus under direct vision and advanced into the stomach. The duodenum was entered and examined to the second part. Endoscope was then slowly pulled out of the patient as the mucosa was examined into details. Patient tolerated procedure well. Findings Esophagus: 2 short columns of varices with areas of scarring identified in the distal esophagus. 3 rubber bands were placed. Antrum: There was some erythema and a pedunculated 15 mm polyp with superficial erosion and some friability. Biopsies were taken. Previous pathology was consistent with ulcerated lesion with granulation tissue. Body: Normal Fundus: Normal Duodenum first part: Normal. Biopsy was taken Duodenum second part: Normal. Biopsy was taken Plan: Await pathology. Continue Nexium 40 mg daily and repeat EGD in 6 months OPERATION: .
[2019-09-30] MEDS ORDERED: LIDOCAINE 2% VISCOUS SOLN 15 ML UDCUP ONE (17:47)
[2019-09-30 17:51] VITALS: BP 143/60
[2019-09-30] MEDS ORDERED: LIDOCAINE 2% VISCOUS SOLN 15 ML UDCUP PO ONE (18:15)
[2019-09-30] MEDS ORDERED: SUCRALFATE 1 GM TABLET PO ONE (18:15)
== END 2019-09-30 19:00 | disposition home or self-care (01) ==
LOC: END 15:05
PROVIDERS: ATTEND Internal Medicine Gastroenterology
DX: I85.01 Esophageal varices with bleeding (principal); K31.7 Polyp of stomach and duodenum; Z79.899 Other long term (current) drug therapy; Z79.84 Long term (current) use of oral hypoglycemic drugs; E11.9 Type 2 diabetes mellitus without complications; I10 Essential (primary) hypertension; E78.00 Pure hypercholesterolemia, unspecified; Z86.010 Personal history of colon polyps; K76.0 Fatty (change of) liver, not elsewhere classified; D50.9 Iron deficiency anemia, unspecified; Z79.82 Long term (current) use of aspirin; Z91.040 Latex allergy status
CPT/HCPCS: 43239; 43244; 82962; 88342 ×2; 88305 ×2; J2250; J3010; J3490; J0171; J1200; J1610; J2310; J2405

== ENCOUNTER → 2020-01-02 | Outpatient (CLI) | payer MEDICARE, BC ==
--- NOTE | 2020-01-02 09:36 | RADIOLOGY REPORT (SQ) ---
EXAM DESCRIPTION: U/S ABDOMEN COMPLETE W/O DOP IMAGES COMPLETED DATE/TIME: 01/02/2020 9:24 am REASON FOR STUDY: CIRRHOSIS, NON-ALCOHOL (K74.69) K74.69 OTHER CIRRHOSIS OF LIVER COMPARISON: 09/19/2019 TECHNIQUE: Dynamic and static grayscale images acquired of the abdomen and recorded on PACS. Additio nal selected color Doppler and spectral images recorded. Note: Study does not meet criteria for complete doppler/duplex scan LIMITATIONS: None. FINDINGS: PANCREAS: No masses. Visualized pancreatic duct normal caliber. LIVER: Liver demonstrates heterogeneous echotexture. Suspect some fatty infiltration. Mild nodular contour similar to prior study. LIVER VASCULATURE: Normal directional flow of the main portal vein and hepatic veins. GALLBLADDER: Surgically absent. ULTRASOUND-DETECTED ANGULO'S SIGN: Negative. INTRAHEPATIC DUCTS AND COMMON DUCT: CBD and intrahepatic ducts normal caliber. No filling defects. INFERIOR VENA CAVA: Normal flow. AORTA: No aneurysm. RIGHT KIDNEY: Normal size. Normal echogenicity. No solid or suspicious masses. No hydronephros is. No calcifications. LEFT KIDNEY: Normal size. Normal echogenicity. No solid or suspicious masses. No hydronephrosi s. No calcifications. SPLEEN: The spleen measures 13 cm in cranial caudal dimensions. Previously this measured 17 cm. PERITONEAL AND PLEURAL SPACES: No ascites or effusions. OTHER: No other significant finding. IMPRESSION: Cirrhotic appearing liver. No focal masses. Splenomegaly has resolved. No ascites. TECHNICAL DOCUMENTATION: JOB ID: [id number] 2010 [email or web address]- All Rights Reserved Reading location - IP/workstation name: [email or web address]
== END ==
LOC: RAD 08:04
PROVIDERS: ATTEND Internal Medicine Gastroenterology
DX: K74.69 Other cirrhosis of liver (principal); R16.1 Splenomegaly, not elsewhere classified
CPT/HCPCS: 76700

== ENCOUNTER → 2020-02-19 | Outpatient (CLI) | payer MEDICARE, BC ==
--- NOTE | 2020-02-20 13:52 | WOMENS IMAGING REPORT ---
EXAM DESCRIPTION: BILAT SCREENING MAMMO W/CAD IMAGES COMPLETED DATE/TIME: 02/19/2020 2:06 pm REASON FOR STUDY: (Z12.31)ENCNTR SCREEN MAMMOGRAM FOR MALIGNANT NEOPLASM OF BREAST Z12.31 ENCNTR SC REEN MAMMOGRAM FOR MALIGNANT NEOPLASM OF JORDON COMPARISON: 03/10/2019 EXAM PARAMETERS: Standard craniocaudal and mediolateral oblique views of each breast recorded using digital acquisition. Read with the assistance of CAD. .[facility] [place] - [facility] Version 2.4 LIMITATIONS: None. FINDINGS: Findings present which are benign by mammographic criteria. No suspicious masses, calcifi cations or architectural distortion. Pertinent benign findings: Procedure changes are seen of the left upper breast. Benign-morphology ca lcifications are seen bilaterally. Benign mammographic findings may include one or more of the following: Smooth masses, popcorn/rim/co arse calcifications, asymmetries, post-procedure changes, and lesions with long-standing stability. IMPRESSION: BENIGN MAMMOGRAPHIC FINDINGS. BIRADS 2 BREAST DENSITY: b. There are scattered areas of fibroglandular density. BIRAD: ASSESSMENT: 2 BENIGN FINDING(S) RECOMMENDATION: ROUTINE SCREENING COMMENT: The patient has been notified of the results by letter per MQSA requirements. Additional no tification policies are in place for contacting patient with suspicious or incomplete findings. Quality ID #[id number]: The [employer] recommends an annual screening mammogram for women aged 40 years or over. This facility utilizes a reminder system to ensure that all patients receive reminder letters, and/or direct phone calls for appointments. This includes reminders for routine scr eening mammograms, diagnostic mammograms, or other Breast Imaging Interventions when appropriate. Th is patient will be placed in the appropriate reminder system. TECHNICAL DOCUMENTATION: FINDING NUMBER: (1) ASSESSMENT: (1) JOB ID: [id number] 2010 [employer]- All Rights Reserved Reading location - IP/workstation name: [email or web address]
== END ==
LOC: WI 13:08
PROVIDERS: ATTEND Family Medicine Geriatric Medicine
DX: Z12.31 Encounter for screening mammogram for malignant neoplasm of breast (principal)
CPT/HCPCS: 77067

== ENCOUNTER 2020-04-23 12:32 | Day surgery (SDC) | payer MEDICARE, BC ==
[2020-04-23] MEDS ORDERED: PROPOFOL INJ 200 MG/20 ML VIAL IV ONE (13:48)
[2020-04-23] MEDS ORDERED: LIDOCAINE 2% INJ-PF (20 MG/ML) 10 ML AMPUL ONE (13:48)
--- NOTE | 2020-04-23 14:40 | Operative Report ---
Operative Report DATE OF SURGERY: 04/23/20 Operative Report: Pre-op diagnosis: History of cirrhosis, esophageal varices and previous variceal rubber banding Post-op diagnosis: 1. Distal esophageal varices 2. Gastric antral polyp Surgery: Esophagogastroduodenoscopy with biopsy and rubber band placement Medications: As per anesthesia Tissue removed: Antral polyp biopsy for pathology Procedure: After informed consent obtained from patient, the throat was sprayed with Hurricane and conscious sedation was achieved. The upper endoscope was inserted into the esophagus under direct vision and advanced into the stomach. The duodenum was entered and examined to the second part. Endoscope was then slowly pulled out of the patient as the mucosa was examined into details. Patient tolerated procedure well. Findings Esophagus: There were 2 short columns of small varices noted in the distal esophagus with evidence of scarring. 3 rubber bands were placed. Antrum: Mild erythema was noted in addition to a 12 to 14mm polyp with superficial erosions. This polyp had been identified over the last year and previous biopsies had shown inflammation. It was biopsied again Body: Normal Fundus: Normal Duodenum first part: Normal Duodenum second part: Normal Plan: Await pathology. Continue nadolol and Nexium. Repeat EGD in 6 months OPERATION: .
[2020-04-23 14:57] VITALS: BP 142/64
== END 2020-04-23 15:07 | disposition home or self-care (01) ==
LOC: END 12:32
PROVIDERS: ATTEND Internal Medicine Gastroenterology
DX: I85.00 Esophageal varices without bleeding (principal); K74.69 Other cirrhosis of liver; K21.9 Gastro-esophageal reflux disease without esophagitis; K25.9 Gastric ulcer, unspecified as acute or chronic, without hemorrhage or perforation; I10 Essential (primary) hypertension; E11.9 Type 2 diabetes mellitus without complications; Z03.818 Encounter for observation for suspected exposure to other biological agents ruled out; Z79.899 Other long term (current) drug therapy; Z79.84 Long term (current) use of oral hypoglycemic drugs; E78.00 Pure hypercholesterolemia, unspecified; Z86.010 Personal history of colon polyps; K76.0 Fatty (change of) liver, not elsewhere classified; D50.9 Iron deficiency anemia, unspecified; K74.60 Unspecified cirrhosis of liver
CPT/HCPCS: 43239; 43244; 88342 ×2; 88341 ×2; 88305 ×2; 00731; U0003; J2704; J3490; C9803; 731; 82962; 87635

== ENCOUNTER → 2020-06-16 | Outpatient (CLI) | payer MEDICARE, BC ==
[2020-06-16 11:22] VITALS: BP 113/52
--- NOTE | 2020-06-16 11:22 | ER RDC ASSESSMENT REPORT ---
Intake - In the Last 14 days Have you traveled outside [place]?: No Have you been in close contact with someone CONFIRMED: No Worked in Healthcare?: No - Symptoms Subjective Fever([place] feverish): No Chills: No Muscule Aches: No Runny Nose: No Sore Throat: No Cough (New or worsening chronic cough): No Shortness of breath: No Nausea or Vomiting: No Headache: No Abdominal Pain: No Diarrhea(3 or more loose stools in last 24 hours): No - Do you have any of the following Chronic lung disease: Asthma or emphysema or COPD: No Cystic Fibrosis: No Diabetes: Yes Diabetes Comment: Type 2 diabetes High Blood Pressure: Yes Cardiovascular Disease: Yes Chronic Kidney Disease: No Chronic Liver Disease: Yes Chronic Liver Disease Comment: History of fatty liver Chronic blood disorder like Sickle Cell Disease: No Weak immune system due to disease or medication: No Neurologic condition that limits movement: No Developmental delay - Moderate to Severe: No Recent (within past 2 weeks) or current : No Morbid Obesity (>100 pounds over ideal weight): No Obesity Comment: Height 5 feet 8 inches weight 185 pounds - Objective Temperature: 97.5 F Pulse Rate: 75 Respiratory Rate: 18 Blood Pressure: 113/52 O2 Sat by Pulse Oximetry: 96 Objective: Given above, testing performed: If Testing Performed: Test Specimen Type Sent to General - General Information source: Patient Notes: Patient here at [facility] for Covid testing patient reports started having diarrhea several weeks ago and has stomach problems for the last 2 years patient's diarrhea had resolved and then returned a couple of days ago patient had an appointment this morning with PCP and when screened had declined the appointment and requested the patient have Covid testing done. Patient reports had a flu shot today. Will follow up with PCP Dr. Bonilla this afternoon. - Related Data Allergies/Adverse Reactions: chocolate flavor Allergy (Severe, Verified 04/20/20 08:35) Shortness of Breath moxifloxacin HCl [From Avelox] Allergy (Severe, Verified 04/20/20 08:35) Shortness of Breath latex Allergy (Intermediate, Verified 04/20/20 08:35) RASH Sulfa (Sulfonamide Antibiotics) Allergy (Intermediate, Verified 04/20/20 08:35) FLAT RASH Past Medical History - Social History Smoking Status: Former Smoker - Quit 16 years ago Family History: CAD, DM - Past Medical History Cardiac Medical History: Reports: Hx Hypertension Denies: Hx Coronary Artery Disease, Hx Heart Attack Pulmonary Medical History: Denies: Hx Asthma, Hx Bronchitis, Hx COPD, Hx Pneumonia Neurological Medical History: Denies: Hx Cerebrovascular Accident, Hx Seizures Endocrine Medical History: Reports: Hx Diabetes Mellitus Type 2 Malignancy Medical History: Reports: Hx Breast Cancer GI Medical History: Reports: Hx Cirrhosis, Hx Gastroesophageal Reflux Disease Musculoskeletal Medical History: Denies Hx Arthritis Past Surgical History: Reports: Other - lumpectomy. Denies: Hx Hysterectomy Physical Exam - General General appearance: Appears well, Alert In distress: None Notes: PHYSICAL EXAMINATION: GENERAL: Well-appearing and in no acute distress. HEAD: Atraumatic, normocephalic. EYES: sclera anicteric, conjunctiva are normal. ENT: nares patent. Moist mucous membranes. NECK: Normal range of motion, supple without lymphadenopathy LUNGS: CTAB and equal. No wheezes rales or rhonchi. Respirations even and unlabored lung sounds clear. HEART: Regular rate and rhythm without murmurs ABDOMEN: Soft, nontender, normal bowel sounds, no guarding. EXTREMITIES: Normal range of motion, no pitting edema. No cyanosis. NEUROLOGICAL: Cranial nerves grossly intact. Normal speech. PSYCH: Normal mood, normal affect. SKIN: Warm, Dry, normal turgor, no rashes or lesions noted Diagnostic Results Laboratory Results: Patient informed of negative rapid strep and negative rapid flu results. Pending strep culture pending Covid testing results. Patient provided instructions regarding Covid to include: As a person under investigation for Covid 19, the [place] department of Health and Human Services, division of public health advises you to adhere to the following guidance until your test results are reported to you. If your test result is positive, you will receive additional information from your provider and your local health department at that time. Remain at home until you are cleared by the health provider or public health authorities. Keep a log of visitors to your home, notify any visitors to your home of your isolation status. If you plan to move to a new address or leave the [facility], notify the local health department in your County. Call your doctor or seek care if you have an urgent medical need. Before seeking medical care, call ahead to get instructions from the provider before arriving at the medical office clinic or hospital. Notify them that you are being tested for the virus that causes Covid 19 so that arrangements can be made, as necessary, to prevent transmission to others in the healthcare setting. Next, notify the local health department in your county. If a medical emergency arises and you need to call 911, inform the first responders that you are being tested for the virus that causes Covid 19. Next, notify the local health department in your county. Patient Education/Counseling Counseling/Education: Patient presents with upper respiratory symptoms worrisome for possible Covid 19. Patient does not have emergency worring symptoms such as difficulty breathing, shortness of breath, chest pain, pressure, confusion or cyanosis. Patient appears suitable for discharge. Patient instructed to follow-up with PCP Dr. Bonilla this afternoon. To ED for persistent or worsening symptoms. Patient's vital signs are stable and patient is nontoxic in appearance. Good return precautions have been discussed with patient, patient verbalized understanding and is agreeable with discharge plan of care at this time. RDC Discharge - Discharge Condition: Stable Disposition: Home; Selfcare
[2020-06-16 12:22] LABS: A TYPE INFLUENZA AG NEGATIVE (NEGATIVE); B INFLUENZA AG NEGATIVE (NEGATIVE)
== END ==
LOC: RDC 10:35
PROVIDERS: ATTEND Nurse Practitioner Family
DX: Z20.828 Contact with and (suspected) exposure to other viral communicable diseases (principal); I10 Essential (primary) hypertension; E11.9 Type 2 diabetes mellitus without complications; K21.9 Gastro-esophageal reflux disease without esophagitis; Z85.3 Personal history of malignant neoplasm of breast; Z87.891 Personal history of nicotine dependence; Z87.19 Personal history of other diseases of the digestive system; Z88.2 Allergy status to sulfonamides; Z88.3 Allergy status to other anti-infective agents; Z91.040 Latex allergy status; Z91.018 Allergy to other foods
CPT/HCPCS: 87070; 87880; 87804; 99201; U0003; G0463; C9803; 87635; 99211

== ENCOUNTER 2020-08-26 22:33 | Emergency (ER) | payer MEDICARE, BC ==
--- NOTE | 2020-08-26 22:56 | ER Document Report ---
ED Medical Screen (RME) - General Chief Complaint: Vomiting Stated Complaint: VOMITING BLOOD Time Seen by Provider: 08/26/20 22:47 Primary Care Provider: BAILEY YANES MD [Primary Care Provider] - Follow up as needed Mode of Arrival: Ambulatory Information source: Patient TRAVEL OUTSIDE OF THE [place] IN LAST 30 DAYS: No - HPI Patient complains to provider of: Vomiting blood Notes: 08/26/20 22:55 Patient here with complaints of vomiting blood. The patient has a history of esophageal varices. She states that recently was sitting on the toilet when she started to feel like she needed to vomit. She states that she vomited up a large amount of dark blood. She states there was some bright red blood as well. She had no vomiting since that time. She is on a blood thinning medications. She denies any current abdominal pain. No fever. Exam: No distress, nontoxic appearing. Lungs clear and equal throughout. Heart sounds normal. No focal abdominal tenderness on limited triage abdominal exam. Vital signs are stable. An initial examination was made on the patient as part of the triage process, and it was determined a more comprehensive evaluation was necessary. Initial orders were placed and patient was transferred to another provider in the ED who assumed care and finished evaluation and plan. - Related Data Allergies/Adverse Reactions: chocolate flavor Allergy (Severe, Verified 04/20/20 08:35) Shortness of Breath moxifloxacin HCl [From Avelox] Allergy (Severe, Verified 04/20/20 08:35) Shortness of Breath latex Allergy (Intermediate, Verified 04/20/20 08:35) RASH Sulfa (Sulfonamide Antibiotics) Allergy (Intermediate, Verified 04/20/20 08:35) FLAT RASH Home Medications: bp meds. metformin. atorvastatin Past Medical History - Social History Chew tobacco use (# tins/day): No Frequency of alcohol use: None Drug Abuse: None - Past Medical History Cardiac Medical History: Reports: Hx Hypertension Denies: Hx Coronary Artery Disease, Hx Heart Attack Pulmonary Medical History: Denies: Hx Asthma, Hx Bronchitis, Hx COPD, Hx Pneumonia Neurological Medical History: Denies: Hx Cerebrovascular Accident, Hx Seizures Endocrine Medical History: Reports: Hx Diabetes Mellitus Type 2 Malignancy Medical History: Reports: Hx Breast Cancer GI Medical History: Reports: Hx Cirrhosis, Hx Gastroesophageal Reflux Disease Musculoskeltal Medical History: Denies Hx Arthritis Past Surgical History: Reports: Other - lumpectomy. Denies: Hx Hysterectomy - Immunizations Hx Diphtheria, Pertussis, Tetanus Vaccination: Yes Physical Exam - Vital signs Vitals: Temp Pulse Resp BP Pulse Ox 98.4 F 77 17 120/57 L 97 08/26/20 22:46 08/26/20 22:46 08/26/20 22:46 08/26/20 22:46 08/26/20 22:46 Course - Vital Signs Vital signs: Temp Pulse Resp BP Pulse Ox 98.4 F 77 17 120/57 L 97 08/26/20 22:46 08/26/20 22:46 08/26/20 22:46 08/26/20 22:46 08/26/20 22:46 Doctor's Discharge - Discharge Referrals: BAILEY YANES MD [Primary Care Provider] - Follow up as needed
[2020-08-26 23:25] LABS: ABSOLUTE BASOPHILS # (AUTO) 0.1 10^3/uL (0.0-0.2); ABSOLUTE EOSINOPHILS # (AUTO) 0.1 10^3/uL (0.0-0.6); ABSOLUTE LYMPHOCYTES (AUTO) 1.6 10^3/uL (0.5-4.7); ABSOLUTE MONOCYTES (AUTO) 0.9 10^3/uL (0.1-1.4); ABSOLUTE NEUT (AUTO) 7.9 10^3/uL (1.7-8.2); BASOPHILS % (AUTO) 0.6 % (0-2); EOSINOPHILS % (AUTO) 0.8 % (0-6); HEMATOCRIT 32.3 % (36.0-47.0); HEMOGLOBIN 10.9 g/dL (12.0-15.5); LYMPHOCYTES % (AUTO) 15.6 % (13-45); MEAN CORPUSCULAR HEMOGLOBIN 30.7 pg (27.0-33.4); MEAN CORPUSCULAR HGB CONC 33.6 g/dL (32.0-36.0); MEAN CORPUSCULAR VOLUME 91 fl (80-97); MONOCYTES % (AUTO) 8.1 % (3-13); PLATELET COUNT 129 10^3/uL (150-450); RED BLOOD COUNT 3.54 10^6/uL (3.72-5.28); RED CELL DISTRIBUTION WIDTH 12.8 % (11.5-14.0); SEGMENTED NEUTROPHILS % (AUTO) 74.9 % (42-78); TOTAL CELLS COUNTED % (AUTO) 100 %; WHITE BLOOD COUNT 10.6 10^3/uL (4.0-10.5)
--- NOTE | 2020-08-26 23:29 | RADIOLOGY REPORT (SQ) ---
EXAM DESCRIPTION: XR CHEST 2 VIEWS COMPLETED DATE/TME: 08/26/2020 23:01 CLINICAL HISTORY: vomiting COMPARISON: 03/28/2019 FINDINGS: Frontal and lateral radiographic views of the chest. Cardiomediastinal silhouette: Atherosclerotic calcification of the thoracic aorta. Heart is not enlarged. Lungs: No consolidation, pneumothorax, or pleural effusion. Bones: Mild degenerative endplate spondylosis. Upper abdomen: No abnormality identified. IMPRESSION: 1. No acute pulmonary process identified.
[2020-08-27 00:07] LABS: ALBUMIN 3.5 g/dL (3.5-5.0); ALKALINE PHOSPHATASE 91 U/L (38-126); ANION GAP 5 (5-19); ASPARTATE AMINO TRANSFERASE 46 U/L (14-36); BILIRUBIN,DIRECT 0.1 mg/dL (0.0-0.4); BILIRUBIN,TOTAL 1.1 mg/dL (0.2-1.3); BLOOD UREA NITROGEN 35 mg/dL (7-20); CALCIUM 9.3 mg/dL (8.4-10.2); CARBON DIOXIDE 28 mmol/L (22-30); CHLORIDE 104 mmol/L (98-107); GLUCOSE 125 mg/dL (75-110); POTASSIUM 5.3 mmol/L (3.6-5.0); TOTAL PROTEIN 6.4 g/dL (6.3-8.2)
[2020-08-27] MEDS ORDERED: OCTREOTIDE ACETATE INJ/PF 100 MCG/1 ML SDV IV ONE (01:02)
[2020-08-27] MEDS ORDERED: NORMAL SALINE 1000 ML 1,000 ML IV ONE (01:03)
[2020-08-27] MEDS ORDERED: ONDANSETRON HCL INJ/PF 4 MG/2 ML SDV IV ONE (01:03)
--- NOTE | 2020-08-27 01:16 | ER Document Report ---
ED GI/ - General Chief Complaint: Vomiting Stated Complaint: VOMITING BLOOD Time Seen by Provider: 08/26/20 22:47 Primary Care Provider: BAILEY YANES MD [Primary Care Provider] - Follow up as needed Mode of Arrival: Ambulatory TRAVEL OUTSIDE OF THE [place] IN LAST 30 DAYS: No - HPI Notes: 08/27/20 01:03 Patient is a 70-year-old female with a past medical history of MORRIS and esophageal varices who presents with vomiting blood. Patient states that around 9:30 PM she felt nauseous and vomited dark red blood that was "lumpy". She denies it appearing coffee ground. Patient states that she usually gets banded twice a year. Her last banding was in April. Her heating and ventilating drafter is Dr. Aviles. Patient states she initially had some upper abdominal pain but that has all resolved. She has no chest pain or shortness of breath. No fevers. 08/27/20 06:09 - Related Data Allergies/Adverse Reactions: chocolate flavor Allergy (Severe, Verified 04/20/20 08:35) Shortness of Breath moxifloxacin HCl [From Avelox] Allergy (Severe, Verified 04/20/20 08:35) Shortness of Breath latex Allergy (Intermediate, Verified 04/20/20 08:35) RASH Sulfa (Sulfonamide Antibiotics) Allergy (Intermediate, Verified 04/20/20 08:35) FLAT RASH Home Medications: bp meds. metformin. atorvastatin Past Medical History - General Information source: Patient - Social History Smoking Status: Never Smoker Chew tobacco use (# tins/day): No Frequency of alcohol use: None Drug Abuse: None Family History: CAD, DM - Past Medical History Cardiac Medical History: Reports: Hx Hypertension Denies: Hx Coronary Artery Disease, Hx Heart Attack Pulmonary Medical History: Denies: Hx Asthma, Hx Bronchitis, Hx COPD, Hx Pneumonia Neurological Medical History: Denies: Hx Cerebrovascular Accident, Hx Seizures Endocrine Medical History: Reports: Hx Diabetes Mellitus Type 2 Malignancy Medical History: Reports: Hx Breast Cancer GI Medical History: Reports: Hx Cirrhosis, Hx Gastroesophageal Reflux Disease Musculoskeletal Medical History: Denies Hx Arthritis Past Surgical History: Reports: Other - lumpectomy. Denies: Hx Hysterectomy - Immunizations Hx Diphtheria, Pertussis, Tetanus Vaccination: Yes Hx Pneumococcal Vaccination: 02/22/17 Review of Systems - Review of Systems Notes: CONSTITUTIONAL: No fever, fatigue or weight loss. SKIN: No rash. HENT: No congestion, ear pain, or sore throat. EYES: No recent vision problems or eye pain. ENDOCRINE: No thyroid problems. No polyuria or polydipsia. CARDIOVASCULAR: No chest pain or edema. RESPIRATORY: No cough, shortness of breath, congestion, or wheezing. GASTROINTESTINAL: Epigastric pain has resolved. Vomiting dark red blood, resolved. GENITOURINARY: No dysuria. MUSCULOSKELETAL: No joint pain or swelling. LYMPHATIC: No swollen glands. NEUROLOGIC: No seizures. No headache, focal weakness or sensory changes. PSYCHIATRIC: No depression or anxiety. Physical Exam - Vital signs Vitals: Temp Pulse Resp BP Pulse Ox 98.4 F 77 17 120/57 L 97 08/26/20 22:46 08/26/20 22:46 08/26/20 22:46 08/26/20 22:46 08/26/20 22:46 - General General appearance: Appears well In distress: None Notes: VITAL SIGNS: Within normal limits. GENERAL: No acute distress, non-toxic appearance. HEAD: Normal with no signs of head trauma. EYES: Conjunctiva normal, no discharge. EARS: Hearing grossly intact. NOSE: Normal. NECK: Normal range of motion, no tenderness, supple, no lymphadenopathy, No adenopathy, no JVD. CHEST: Clear breath sounds bilaterally. CARDIAC: Regular rate and rhythm. S1 and S2, without murmurs, gallops, or rubs. VASCULAR: No Edema. ABDOMEN: Normal and soft with no tenderness, no masses or pulsatile masses. MUSCULOSKELETAL: Good range of motion of all major joints. Extremities without clubbing, cyanosis or edema. NEUROLOGICAL: Alert and oriented x 3. No focal sensory or strength deficits. Speech normal. Follows commands appropriately. PSYCHIATRIC: Normal Affect, judgement and mood. SKIN: Normal appearance with no rashes or lesions. Course - Re-evaluation Re-evalutation: 08/27/20 02:06 While in the ER, patient had another episode of vomiting blood. Nursing reports it was about 300 mL. Her blood pressure also dropped to 85 systolic. I discussed with our surgeon, Dr. Wyatt, who does not do banding or endoscopies. He recommended transfer. I discussed with [facility] but they are at capacity not accepting patients. I currently have a call out to [facility]. I reassessed the patient. I have also updated her on the plan. Patient was accepted to [facility]. She will go ED to ED. I spoke with the GI doctor Dr. Lewis. I also spoke with the ED physician, Dr. Min. Dr. Min recommended that I give her a 1 unit of blood as she had an episode of mild hypotension that resolved. On reassessment, patient is awake and alert. Her blood pressure is 100 systolic. She states that is usually normal for her. She was not able to receive a unit of blood because transport came before it was ready. The flight team stated that they could give it to her in route if needed. 08/27/20 06:12 - Vital Signs Vital signs: Temp Pulse Resp BP Pulse Ox 97.5 F 77 22 H 89/53 L 97 08/27/20 02:53 08/26/20 22:46 08/27/20 02:53 08/27/20 02:53 08/27/20 02:53 - Laboratory Results Result Diagrams: 08/26/20 23:08 08/26/20 23:08 Laboratory Results Interpreted: 08/26/20 08/26/20 08/26/20 23:08 23:08 23:08 WBC 10.6 H RBC 3.54 L Hgb 10.9 L Hct 32.3 L Plt Count 129 L Sodium 136.5 L Potassium 5.3 H BUN 35 H Est GFR (MDRD) Non-Af 50 L Glucose 125 H AST 46 H Lipase 437.7 H Urine Ketones Ur Leukocyte Esterase Urine Ascorbic Acid Crossmatch See Detail 08/27/20 01:48 WBC RBC Hgb Hct Plt Count Sodium Potassium BUN Est GFR (MDRD) Non-Af Glucose AST Lipase Urine Ketones TRACE H Ur Leukocyte Esterase MODERATE H Urine Ascorbic Acid 20 H Crossmatch Critical Laboratory Results Reviewed: No Critical Results - Radiology Results Critical Radiology Results Reviewed: No Critical Results Critical Care Note - Critical Care Note Total time excluding time spent on procedures (mins): 40 Comments: Upon my evaluation, this patient had a high probability of imminent or life- threatening deterioration due to esophageal varices bleed, which required my d irect attention, intervention, and personal management. I provided 40 minutes of critical care time. Time includes review of laboratory data, radiology cells, discussion with consultants, and monitoring for potential decompensation. Interventions were performed as documented above. Discharge - Discharge Clinical Impression: Upper gastrointestinal bleeding Varices, esophageal Qualifiers: Esophageal varices type: unspecified type Esophageal varices bleeding: with bleeding Qualified Code(s): I85.01 - Esophageal varices with bleeding Condition: Good Disposition: [facility] Referrals: BAILEY YANES MD [Primary Care Provider] - Follow up as needed
[2020-08-27 01:30] LABS: INTERNATIONAL RATION (INR) 1.05; PROTHROMBIN TIME 13.9 SEC (11.4-15.4)
[2020-08-27] MEDS ORDERED: NORMAL SALINE 500 ML with OCTREOTIDE ACETATE 500 MCG IV PRN ×2 (01:54)
[2020-08-27 02:05] LABS: APPEARANCE,URINE SLIGHTLY-CLOUDY; BILIRUBIN,URINE NEGATIVE (NEGATIVE); COLOR,URINE YELLOW; GLUCOSE, URINE NEGATIVE (NEGATIVE); KETONES,URINE TRACE mg/dL (NEGATIVE); LEUKOCYTE ESTERASE,URINE MODERATE (NEGATIVE); NITRITE,URINE NEGATIVE (NEGATIVE); PROTEIN,URINE NEGATIVE (NEGATIVE); URINE SPECIFIC GRAVITY 1.019; UROBILINOGEN,URINE NEGATIVE mg/dL (<2.0)
[2020-08-27] MEDS ORDERED: TRANEXAMIC ACID INJ/PF 1,000 MG/10 ML SDV IV ONE (02:05)
[2020-08-27] MEDS ORDERED: OCTREOTIDE ACETATE INJ/PF 100 MCG/1 ML SDV ONE (02:20)
[2020-08-27] MEDS ORDERED: NORMAL SALINE 250 ML IV PRN ×2 (02:22)
[2020-08-27 03:18] VITALS: BP 89/53
== END 2020-08-27 03:19 | disposition short-term general hospital (02) ==
LOC: ER 22:33
DX: I85.01 Esophageal varices with bleeding (principal); K92.0 Hematemesis; I10 Essential (primary) hypertension; E11.9 Type 2 diabetes mellitus without complications; Z91.040 Latex allergy status; Z88.2 Allergy status to sulfonamides; Z85.3 Personal history of malignant neoplasm of breast
CPT/HCPCS: 99285; 96361; 96375; 96365; 86900; 86901; 36415; 86850; 83690; 85025; 85610; 0241U ×4; 80053; 81001; 86920; 71046; A9270; J2405; J7030; J3490; C9803; J2354